=== PATIENT | male | born 1955 | race Caucasian/White ===

== ENCOUNTER 2023-05-02 11:16 | Inpatient (IN) | payer OTHER, SELFPAY ==
[2023-05-02] VITALS (12 sets, daily range): BP systolic 88–127; BP diastolic 39–92; BMI 23.0
--- NOTE | 2023-05-02 09:06 | ED.GENMED ---
History of Present Illness
General
Chief Complaint: Abdominal Symptoms
Source: patient
Exam Limitations: none
Time Seen by Provider: 05/02/23 08:56
Nursing documentation reviewed up to this point in time: agreed with
Travel History
Have you had any contact with someone who has COVID-19?: No
Do you have any symptoms of coronavirus? Fever > 100 degrees, chills, cough, shortness of breath, sore throat, loss of taste or smell, muscle aches, or headache?: No
History of Present Illness
History of Present Illness:
Patient with history of hypertension and GERD, presents to ED for persistent chest pain which woke the patient up from sleep at 6:30 AM yesterday. Chest pain described as burning sensation, associated with shortness of breath. Denies diaphoresis
or nausea. Denies dizziness. Patient has had cold over the past 2 weeks, which has resolved. Denies leg pain or swelling. Denies back pain. Denies recent travel or surgery. Denies previous history of similar symptoms. Patient takes 81 mg
aspirin daily. Upon arrival, patient found to have cyanotic changes on his fingers/toes, which patient was not aware of.
Review of Systems
Review of Systems
Allergies reviewed?: Yes
All Other Systems: ROS reviewed and negative except as documented in HPI and ROS
Constitutional: Reports no symptoms
EENT: Reports no symptoms
Respiratory: Reports trouble breathing
Cardiac: Reports chest pain
ABD/GI: Reports no symptoms
: Reports no symptoms
Musculoskeletal: Reports no symptoms
Skin: Reports other (hands/feet cyanosis)
Neurological: Reports no symptoms
Phy Exam
Physical Exam
Physical Exam:
Physical Exam
General: mild distress, acutely ill. afebrile.
Head: nc/at. eomi
Neck: supple. no meningeal signs. normal posterior pharynx
Heart: s1/s2 regular rate and rhythm, systolic ejection murmur. equal radial pulses.
Lungs: no acute respiratory distress. clear bilaterally
Abdomen: normal bowel sounds. not tender.
Neuro: alert and oriented. no focal neurological deficits
Skin: b/l fingers/toes cyanosis noted. pale appearing
Psychiatric: well kept. interactive and cooperative
Extremities: no edema. no calf tenderness.
Course
Orders/Labs/Results
Orders:
Orders
05/02/23 09:00
Electrocardiogram (*1) Urgent
Reason for Study: Chest Pain
EKG- Treatment ONCE
05/02/23 09:01
CR Chest Portable - 1 View Urgent
Comment:
Reason For Exam: chest pain
Reason Study Needs to be Portable: Patient Unstable
05/02/23 09:06
Complete Blood Count/No Diff Urgent
Comprehensive Metabolic Panel Urgent
Magnesium Urgent
NT-proBNP Urgent
Troponin I Urgent
05/02/23 09:18
0.9% Sodium Chloride 500 ml [Nss] 500 ml IV BOLUS
Aspirin Chewable [Low Strength Aspirin] 324 mg PO NOW STA
05/02/23 09:48
Heparin 5,500 units IV NOW STA
Nursing to Place Non Medication Order As Directed
Physician Order: PTT 6 hours after initial start of Heparin infusion
Above order entered?: Yes
05/02/23 10:00
Echo Follow up Study W Dop Stat
Reason for Study: chest pain
Cardiology Consult: Israel Gleason
05/02/23 10:01
PTT Urgent
Comment: Obtain baseline before beginning heparin infusion if not already collected
05/02/23 10:03
Calcium Gluconate IV [Calcium Gluconate 10% 10 ml] 4.65 meq IV NOW STA
05/02/23 10:05
Dextrose 5%/Water 1000 ml [D5w] 1,000 ml Sodium Bicarbonate 150 meq IV Per Protocol mls/hr
05/02/23 10:13
Insulin Human Regular [Novolin R] 5 units IV NOW STA
05/02/23 10:21
Dextrose 50%-Water [Dextrose 50% Syringe] 25 grams .ROUTE .STK-MED ONE
05/02/23 10:27
Dextrose 50%-Water [Dextrose 50% Syringe] 12.5 grams IV NOW STA
05/02/23 10:35
Heparin 1000 Units/500 ml [Heparin] 1,000 units in 500 ml .ROUTE .STK-MED
Heparin Sodium,Porcine/Ns/Pf [Heparin 2000 Units/1000 ml] 2,000 unit in 1,000 ml .ROUTE .STK-MED
Lidocaine HCl/Pf [Xylocaine-Mpf 1% Vial] 150 mg .ROUTE .STK-MED ONE
Verapamil Injectable [Isoptin/Verapamil Injection] 5 mg .ROUTE .STK-MED ONE
05/02/23 10:36
Nitroglycerin [Tridil] 1,500 mcg .ROUTE .STK-MED ONE
05/02/23 10:38
Fentanyl Citrate/Pf [Sublimaze] 100 mcg .ROUTE .STK-MED ONE
Midazolam HCl [Versed] 2 mg .ROUTE .STK-MED ONE
05/02/23 10:39
Heparin 10,000 units .ROUTE .STK-MED ONE
05/02/23 10:51
Add On- LAB Stat
Tests Added?: Lactic acid
05/02/23 11:00
0.9% Sodium Chloride 500 ml [Nss] 500 ml IV 500 mls/hr
05/02/23 11:04
NORepinephrine 4 MG/250 ML [Levophed] 4 mg in 250 ml .ROUTE .STK-MED
05/02/23 11:09
Admit/Transfer Patient As Directed
Co-Sign Provider:
Level of Care: Inpatient admission
Assign to:: ICU
Physician / Group: Hospitalist
Diagnosis: Cardiogenic shock/MD
Reason for Hospitalization: .
Expected length of stay greater than two midnights?: Yes
ELOS- Estimated Length of Stay in days: 3
I certify the patient meets the requirements for IP care: Yes
05/02/23 11:10
Code Status As Directed
Resuscitation Status: Full Code
05/02/23 12:27
Lactic Acid Routine
05/02/23 19:11
Consult Cardiology [CARDIOLOGY CONSULT] Routine
Consulting Provider: Israel Gleason
Was physician already notified: Yes
Reason for consult: Cardiogenic shock,MD
Consult Cigar Patcher [Cigar Patcher Consult] Routine
Consulting Provider: Moisés Winston
Was physician already notified: Yes
Reason for consult: Cardiogenic shock
Consult Nephrology [NEPHROLOGY CONSULT] Routine
Consulting Provider: Lou Hemphill
Was physician already notified: Yes
Reason for consult: Renal failure
Consult Vascular Surgery [Vascular Surgery Consult] Routine
Consulting Provider: Sharad Segura
Was physician already notified: Yes
Reason for consult: MD
05/03/23 08:00
Aspirin Chewable [Low Strength Aspirin] 81 mg PO DAILY
Abnormal Lab Results
05/02/23 05/02/23
09:06 10:01
RBC 4.14 L 10^6/uL
(4.70-6.10)
MCV 101.4 H fL
(80.0-94.0)
MCH 34.5 H pg
(27.0-31.0)
MPV 12.4 H fL
(7.4-10.4)
APTT > 200 H* Sec
(23.4-35.0)
Potassium 6.1 H* mmol/L
(3.5-5.1)
Carbon Dioxide 17 L mmol/L
(22-30)
BUN 39 H mg/dl
(9-20)
Creatinine 2.9 H mg/dL
(0.7-1.3)
Glucose 137 H mg/dl
(70-99)
Total Bilirubin 2.1 H mg/dl
(0.2-1.3)
AST 3291 H* U/L
(17-59)
ALT 1283 H* U/L
(0-50)
Alkaline Phosphatase 137 H U/L
(38-126)
Troponin I 18.700 H* ng/ml
Albumin 5.1 H g/dl
(3.5-5.0)
05/02/23 09:06
05/02/23 09:06
Vital Signs
Initial and Last Documented VS:
Initial Vital Signs
Pulse Resp BP
87 16 103/73
05/02/23 08:48 05/02/23 08:48 05/02/23 08:48
Last Documented Vital Signs
Temp Pulse Resp BP Pulse Ox
99.1 F 88 14 86/66 100
05/03/23 06:00 05/03/23 07:15 05/03/23 07:15 05/03/23 07:00 05/03/23 07:15
MDM/Problems Addressed
MDM/Problems Addressed:
History and exam concerning for acute coronary syndrome, with development of cardiogenic shock.
Peripheral cyanosis noted on exam. Left dorsalis pedis pulse detected via Doppler. Unfortunately, right dorsalis pedis pulse unable to be detected via Doppler. Patient evaluated in ED by Dr. Segura, vascular surgery, who feels that patient's
peripheral cyanosis likely secondary to systemic etiology, i.e. cardiac versus dissection.
Awaiting evaluation by cardiology, Dr. JC Gleason.
Hyperkalemia noted - given calcium gluconate, insulin, and D50. Sodium bicarbonate infusion started after discussion with nephrology, , for possible iv dye load with upcoming studies.
Blood work reviewed and noted. Patient given aspirin and heparin bolus.
Bedside echo (verbal) - EF approx 10% with hypokinesis. Pt evaluated by Elevator Service Technician attending () - will proceed to open die inspector.
Critical care statement: A total of 60 minutes of critical care time was provided for this patient. This includes management of unstable vital signs, evaluation of the patient at bedside, reviewing the patient's pertinent medical records, discussion
with consultants, review of old EKGs and review of pertinent medical records. This time with separate from time utilized to perform the aforementioned documented procedures
*Critical Care Note
Total Time (30-74mins, 75-104mins- exclusive of procedures): 60 min
ED Attending Note
-
Portions of this chart may have been created with voice recognition software.� Occasional wrong word or��sound alike� substitutions may have occurred due to the inherent limitations of voice recognition software.
Discharge Plan
Departure
Patient Disposition: Admit
Date of Disposition: 05/02/23
Time of Disposition: 10:08
Admit to: ICU
Presentation/result/management discussed w/ accepting MD/DO: Hospitalist
Condition: Critical
Discharge Problem:
Non-ST elevation MD (NSTEMI), Acute renal failure (ARF), Cyanosis, Acute hyperkalemia
Interventions
Interventions:
*Risk Screen - Suicide Last Done: 05/02/23 10:30
*General Assessment Last Done: 05/02/23 10:30
*Neglect/Abuse Screening Last Done: 05/02/23 10:30
ED- Fall Risk Assessment Last Done: 05/02/23 11:09
*ED COVID-19 Vaccine History Last Done: 05/02/23 08:48
*Nursing Disposition Last Done: 05/02/23 10:30
AP-Gpqiqz-Vlmaecjuma Assessment Last Done: 05/02/23 09:37
Discharge Date and Time
Discharge Date/Time: 05/02/23 10:57
[2023-05-02] MEDS: NSS 500 IV ×2 (09:22→10:34)
[2023-05-02] MEDS: LOW STRENGTH ASPIRIN 324 MG PO (09:23)
[2023-05-02 09:33] LABS: Hemoglobin 14.3 g/dL (13.0-18.0); Mean Corpuscular Hgb 34.5 pg (27.0-31.0); Mean Corpuscular Volume 101.4 fL (80.0-94.0); Mean Platelet Volume 12.4 fL (7.4-10.4); Platelet Count 267 10^3/uL (130-400); Red Blood Cell Count 4.14 10^6/uL (4.70-6.10); Red Cell Dist. Width 14.4 % (11.5-14.5); White Blood Cell Count 9.4 10^3/uL (4.8-10.8)
[2023-05-02 09:46] LABS: Albumin 5.1 g/dl (3.5-5.0); Alkaline Phosphatase 137 U/L (38-126); Blood Urea Nitrogen 39 mg/dl (9-20); Calcium 9.8 mg/dl (8.4-10.2); Carbon Dioxide 17 mmol/L (22-30); Chloride 102 mmol/L (98-107); Estimated Creatinine Clearance 24 ml/min; Glucose 137 mg/dl (70-99); Magnesium 1.8 mg/dl (1.6-2.3); Potassium 6.1 mmol/L (3.5-5.1); Sodium 136 mmol/L (135-145); Total Bilirubin 2.1 mg/dl (0.2-1.3); Total Protein 8.2 g/dl (6.3-8.2); eGFR 22.85
[2023-05-02] MEDS: HEPARIN 5500 UNITS IV (09:52)
[2023-05-02 10:04] LABS: ALT (SGPT) 1283 U/L (0-50); NT-proBNP > 27000 pg/ml
--- NOTE | 2023-05-02 10:04 | W.PN.UPDATE ---
Update Note
Progress Note Update
Seen and evaluated urgently per request in the emergency room. 67-year-old male who presents with acute onset of chest pain and some shortness of breath that he woke up with at 6:30 AM. Notes continued chest pain. We were asked to evaluate
secondary to finding of bilateral foot/toe cyanosis and lack of Doppler signals. Patient is without any complaints of pain/weakness in his legs or feet bilaterally. Patient denies any history of lower extremity revascularizations. Denies any
vascular surgical problems. His notes that he had a history of a stroke several years ago that was felt to be due to an embolic cause from what I can understand. Denies any history of aortic problems, no family history of aortic problems.
Denies any abdominal pain currently.
On exam/ Systolic blood pressures in the 80s to 90s. Heart rate 110s. He is awake and alert. Upper extremity bilateral radial pulses are weakened but palpable (1+). Abdomen soft, nondistended, nontender. Lower extremity with weak palpable
femoral pulses bilaterally. (1+). Hands and feet are all symmetrically and equally (upper and lower extremity) slightly cool. All digits (upper and lower extremity) homogenously slightly cyanotic appearing. Brisk capillary refill.
Plan/ This does not appear to be an acute peripheral vascular issue. This appears to be a systemic process such as an MD or an aortic dissection. I discussed this with the emergency room staff, Dr. Isaacs. In the interval since I saw the patient, I
noted that his troponin is 18. Therefore this is likely an acute cardiac event. I recommended Dr. Isaacs immediate cardiac evaluation. In the event that this is not felt to be an acute MD type situation, then patient needs a stat CTA of the
chest/abdomen/pelvis to rule out an acute aortic dissection (despite creatinine, benefits far outweighed by risks in that setting). Will defer to cardiology in the emergency room staff at this point. We are available if needed.
--- NOTE | 2023-05-02 10:11 | CON.VAS ---
Consultation
Consultation Request
Performing Provider: Colton
Reason for Consultation: Cyanotic toes
Medical History
-
Chief Complaint: Chest pain
History of Present Illness:
67-year-old male who presents with acute onset of chest pain and some shortness of breath that he woke up with at 6:30 AM.� Notes continued chest pain.� We were asked to evaluate secondary to finding of bilateral foot/toe cyanosis and lack of
Doppler signals.� Patient is without any complaints of pain/weakness in his legs or feet bilaterally.� Patient denies any history of lower extremity revascularizations.� Denies any vascular surgical problems.� His notes that he had a history of
a stroke 15 years ago that was felt to be due to an embolic cause from what I can understand.� Denies any history of aortic problems, no family history of aortic problems.
Denies any abdominal pain currently. Admits to HTN. Takes one antihypertensive and baby aspirin daily.
Pt seen at bedside in the ER with Dr Segura and pt's present.
Past Medical History
Past Medical History: CVA (embolic stroke 15 years ago (per )- no residual ), HTN and Other
Past Surgical History: None
Social History
Tobacco: Smoker
Personal:
Living: With Family
Family History
Family History: Early CAD
Allergies / Home Medications
Allergy/AdvReac Type Severity Reaction Status Date / Time
No Allergy Information Allergy Verified 05/02/23 08:53
Available
Review of Systems
-
History Source: Patient and Family
All other systems: Negative unless noted
Constitutional: Reports No Symptoms
EENT: Reports No Symptoms
Respiratory: Reports No Symptoms
Cardiac: Reports Chest Pain
Vascular: Reports Numbness (toes)
Abdomen/GI: Reports No Symptoms
: Reports No Symptoms
Musculoskeletal: Reports No Symptoms
Skin: Reports No Symptoms
Neurological: Reports No Symptoms
Endocrine: Reports No Symptoms
Physical Exam
Vital Signs
Pulse Resp BP Pulse Ox
114 14 99/81 98
05/02/23 10:01 05/02/23 10:01 05/02/23 10:01 05/02/23 10:01
Lab Results
05/02/23 09:06
05/02/23 09:06
Troponin I 18.700 ng/ml H* 05/02/23 09:06
Wvk-K-Fixmszxknbo Pept > 63837 pg/ml 05/02/23 09:06
Physical Exam
General: No Apparent Distress
HEENT: Normocephalic and Atraumatic
Respiratory: Non Labored Respirations
Cardiac: Negative JVD
GI: Soft, Non Tender and Non Distended
Musculoskeletal: No Clubbing, Cyanosis (all fingers and toes) and Edema (BL ankles/feet)
Skin: Warm and Other (Cool toes BL, brisk cap refill)
Neuro: Awake, Alert and Oriented
Psych: Calm
Pulses: Bilateral Femoral: +1 (faint), Left Dorsalis Pedis: Doppler (none), Right Dorsalis Pedis: Doppler (faint) and Bilateral Posterior Tibial: Doppler (no doppler signal)
Assessment / Plan
-
Plan/ This does not appear to be an acute peripheral vascular issue.� This appears to be a systemic process such as an IL or an aortic dissection.� I discussed this with the emergency room staff, Dr. Isaacs. � In the interval since I saw the patient, I
noted that his troponin is 18.� Therefore this is likely an acute cardiac event.� I recommended Dr. Isaacs immediate cardiac evaluation.� In the event that this is not felt to be an acute IL type situation, then patient needs a stat CTA of the
chest/abdomen/pelvis to rule out an acute aortic dissection (despite creatinine, benefits far outweighed by risks in that setting).� Will defer to cardiology in the emergency room staff at this point.� We are available if needed.
Data Reviewed
-
Labs: Labs Reviewed by me
--- NOTE | 2023-05-02 10:11 | CON.CAR ---
Addendum entered and electronically signed by Israel Gleason MD 05/02/23 19:03:
67-year-old man with history of hypertension, prior CVA, GERD, daily alcohol and tobacco use with intermittent symptoms of 'reflux' for months.� He had onset of constant chest burning May 01 at 6 AM which persisted unabated until presentation to
the emergency department where he presented in a low output state with ongoing chest discomfort and hypotension.
PMH: Hypertension, CVA, hypercholesterolemia, GERD
PSH: None
SH: , lives at home, self-employed in IT, daily alcohol, daily tobacco
FH: CAD, hypertension
Allergies none
Medications none
Patient complaining of chest burning, appears chronically ill, dusky hands and feet
Pulse 100, blood pressure 90 systolic, rr 22
Head neck exam unremarkable
Lungs diminished breath sounds
Cardiac distant heart tones no obvious murmurs JVD hard to assess
Abdomen benign
Extremities dusky
Pulses diminished
Neuro nonfocal
Hemoglobin 14.3, BUN/creatinine 37 and 2.8, sodium 130, potassium 5, AST ALT 2647, 1096,proBNP greater than 27,000, troponin 18.7
Chest x-ray probable COPD, curly lines, cardiomegaly
ECG sinus rhythm, IVCD right axis deviation, anterolateral myocardial infarction right atrial enlargement, left atrial enlargement
Impression:
Out of hospital myocardial infarction with cardiogenic shock, duration approximately 30 hours with ongoing chest pain
Hypertension
Hypercholesterolemia
History of stroke
GERD
Plan:
Urgent cardiac catheterization
Original Note:
Consultation
Consultation Request
Date/Time Consultation Requested: 05/02/2023
Date/Time Consultation Performed: 05/02/2023
Requesting Provider: Dr. Isaacs
Performing Provider: Sera Larsen PA-C for Dr. JC Gleason
Reason for Consultation: Chest pain, shortness of breath
Medical History
-
History of Present Illness:
Patient is a 67-year-old male with past medical history significant for hypertension, stroke, GERD, daily alcohol use, tobacco abuse who presents to emergency department 05/02/2023 with chest pain, shortness of breath and reflux symptoms. Patient
reports he has been having dyspnea on exertion for several months associated with reflux symptoms. Yesterday he woke up with chest burning that persisted most of the day associated with SOB. Chest pain continued prompting him to seek medical
attention today. In emergency department patient patient was found to have dusky lips and cyanotic fingertips. He also has weakened peripheral pulses. Noted to be hypotensive with BP 88/63 to 103/73. EKG showed sinus tachycardia at 106 bpm with
IVCD, possible RVH and T wave abnormality in inferior leads. Chest x-ray showed mild right lower lung atelectasis versus scarring and mild cardiomegaly. Abnormal labs include BUN 39, creatinine 2.9, potassium 6.1, ALT 1283. Troponin 18.7, proBNP
greater than 27,000.
At time of this presentation patient continues to complain of 3 out of 10 chest burning/tightness. He currently denies shortness of breath, dizziness or lightheadedness.
PMH:
Hypertension
Stroke
GERD
Daily ETOH use
Tobacco abuse
Past Medical History
Past Medical History: Other (see HPI)
Past Surgical History: None
Social History
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 )
Alcohol: Daily (3-5 drinks daily VO on the rocks and several shocks of [place] daily)
Drug: Marijuana (vapes 2-3 times a week)
Personal:
Living: With Family
Employment: Employed (IT, owns business)
Family History
Family History: CAD, Hypertension and Other (Emphysema)
Allergies / Home Medications
Allergy/AdvReac Type Severity Reaction Status Date / Time
No Allergy Information Allergy Verified 05/02/23 08:53
Available
Review of Systems
-
History Source: Patient and Family ()
Physical Exam
Vital Signs
Pulse Resp BP Pulse Ox
114 14 99/81 98
05/02/23 10:01 05/02/23 10:01 05/02/23 10:01 05/02/23 10:01
GEN: No distress, awake, Ox3, dusky lips/palor
HEENT: supple, anicteric, mmm
LUNGS:decreased with crackles at right base
CV: Reg but tachy, S1/S2, 1/6 syst murmur
ABD: soft, BS+, NT/ND
EXT:Trace to +1 LE edema, fingers tips are cyanotic. Cold LE extremities right >lt
NEURO: Gross non-focal
SKIN:pallor, cool
Lab Results
05/02/23 09:06
05/02/23 09:06
Troponin I 18.700 ng/ml H* 05/02/23 09:06
Iyc-G-Hlfrbwdbdxk Pept > 37755 pg/ml 05/02/23 09:06
Impression / Plan
-
PCP: Annika Morton
Associate Professor Of Library Media: None prior to arrival, initial consult Dr. JC Gleason
Impression:
Presents 05/02/2022 with chest burning/pain and shortness of breath for > 24 hours
Abnormal troponin, initial 18.7 with concern for late presentation FL with cardiogenic shock
NSTEMI
Acute heart failure with unknown ejection fraction, proBNP greater than 27,000
Abnormal LFTs
MIREILLE, creatinine 2.9
Hyperkalemia, potassium 6.1
Hypertension
Stroke ~2008
GERD
Daily ETOH use
Tobacco abuse
Echo 05/02/2023:pending
Plan:
-Patient is a 67-year-old male with past medical history significant for hypertension, stroke, GERD, daily alcohol use, tobacco abuse who presents to emergency department 05/02/2023 with chest pain, shortness of breath and reflux symptoms. Patient
reports he has been having dyspnea on exertion for several months associated with reflux symptoms. Yesterday he woke up with chest burning that persisted most of the day associated with SOB. Chest pain continued prompting him to seek medical
attention today. In emergency department patient patient was found to have dusky lips and cyanotic fingertips. He also has weakened peripheral pulses. Noted to be hypotensive with BP 88/63 to 103/73. EKG showed sinus tachycardia at 106 bpm with
IVCD, possible RVH and T wave abnormality in inferior leads. Chest x-ray showed mild right lower lung atelectasis versus scarring and mild cardiomegaly. Abnormal labs include BUN 39, creatinine 2.9, potassium 6.1, ALT 1283. Troponin 18.7, proBNP
greater than 27,000.
At time of this presentation patient continues to complain of 3 out of 10 chest burning/tightness. He currently denies shortness of breath, dizziness or lightheadedness.
-Presents 05/02/2022 with chest burning/pain and shortness of breath for > 24 hours. Troponin 18.7 with concern for late presentation FL and possible cardiogenic shock with hypotension, MIREILLE and abnormal LFTs.
-Stat echocardiogram ordered
-Consider emergent cardiac catheterization
-Got ASA 325 mg and heparin bolus with gtt in ED
-Hypotension with tachycardia -May require inotropes
-MIREILLE - getting IVF bolus
-K+ 6.1 being corrected with dextrose and insulin. Continue to monitor closely
Plan discussed with Dr. Isaacs, nursing, Dr. Gleason
Data Reviewed
-
EKG: Report Reviewed by me, Discussed with Physician, Discussed with Nurse, Discussed with Patient and Discussed with Family
Radiology: Report Reviewed by me, Discussed with Physician, Discussed with Nurse, Discussed with Patient and Discussed with Family
Labs: Labs Reviewed by me, Discussed with Physician, Discussed with Nurse, Discussed with Patient and Discussed with Family
Old Records: Reviewed
[2023-05-02] MEDS: CALCIUM GLUCONATE 10% 10 ML 4.65000000000000036 MEQ IV (10:12)
[2023-05-02] MEDS: SODIUM BICARBONATE 1150 MEQ IV (10:13)
[2023-05-02] MEDS: NOVOLIN R 5 UNITS IV (10:25)
--- NOTE | 2023-05-02 10:25 | HPS.HSE ---
Family Physician
-
Family Physician: Annika Morton
Chief Complaint
-
Chest pain for 1 day duration
History of Present Illness
67 years old male came from home. Patient is accompanied by his . Patient reported chest pain with shortness of breath earlier today. He was not feeling well for 2 weeks. He has not smoked cigarettes because of feeling unwell for 2 weeks.
He reported shortness of breath mostly exertional. Finger discoloration. He continues to drink whiskey every night but he has not had alcohol for 2 nights for feeling unwell.. In the emergency room, the initial concern was regarding peripheral
cyanosis and vascular surgery was consulted. Further workup showed acute myocardial infarction cardiology was consulted in the emergency room. Troponin was elevated. Patient was diagnosed with non-ST elevation myocardial infarction. Preliminary
echocardiogram showed severe depressed left ventricular function. Patient has family history of heart disease.
Creatinine on admission 2.9. Potassium 6.1. Patient takes losartan for high blood pressure. No recent blood work in the system.
Medical History
Past Medical History
Past Medical History: Reports Other (Tobacco use, alcohol use, hypertension, history of stroke, hyperlipidemia, gastroesophageal reflux disease)
Past Surgical History: Reports Other (No recent major surgery)
Social History
Tobacco: Smoker
Alcohol: Daily
Drug: None
Personal:
Living: With Family
Employment: Employed (Private business)
Family History
Family History: CAD
Allergies / Home Medications
Allergies reflects when Allergies were last updated in [employer].
Home Medications with original date entered in [employer]
Allergy/Medication List:
Allergies
Allergy/AdvReac Type Severity Reaction Status Date / Time
No Allergy Information Allergy Verified 05/02/23 08:53
Available
Home Medications
aspirin 81 mg chewable tablet 81 mg PO DAILY 05/02/23
dexlansoprazole 60 mg capsule,biphase delayed release (Dexilant) 60 mg PO DAILY 05/02/23
losartan 50 mg tablet 50 mg PO DAILY 05/02/23
Review of Systems
-
History Source: Patient
A 12 point ROS was completed and negative except as noted: Yes
Constitutional: Denies Fever or Chills
EENT: Denies Sore Throat
Respiratory: Reports Trouble Breathing; Denies Cough
Cardiac: Reports Chest Pain
Abdomen/GI: Denies Abdominal Pain
: Denies Dysuria
Musculoskeletal: Denies Joint Pain
Skin: Denies Itching or Rash
Neurological: Denies Numbness
Endocrine: Denies Temp Intolerance
Hematologic/Lymphatic: Denies Bruising
Psych: Denies Panic Disorder
Physical Exam
Vital Signs
Vital Signs
Pulse Resp BP Pulse Ox
114 14 99/81 98
05/02/23 10:01 05/02/23 10:01 05/02/23 10:01 05/02/23 10:01
Physical Exam
General: No Apparent Distress and Appears Chronically Ill
HEENT: Anicteric, Moist mucous membranes and Atraumatic
Respiratory: Decreased Breath Sounds
Cardiac: S1/S2
GI: Soft and Non Tender
Rectal: No Maroon Stools
Genito-urinary: No costovertebral tender; No Bloody Urine
Musculoskeletal: Cyanosis and No Edema
Skin: Dry; No Jaundice
Neuro: AO x 3 and Nonfocal/grossly intact
Psych: Calm and Intact Judgment/Insight; No Agitated
Laboratory Results
-
05/02/23 09:06
05/02/23 09:06
Laboratory Results
Total Bilirubin 2.1 mg/dl (0.2-1.3) H 05/02/23 09:06
ALT 1283 U/L (0-50) H* 05/02/23 09:06
Alkaline Phosphatase 137 U/L (38-126) H 05/02/23 09:06
Troponin I 18.700 ng/ml H* 05/02/23 09:06
Impression/Plan
-
IMPRESSION:
67 years male who presented with chest pain, shortness of breath and peripheral cyanosis
# Acute non-ST elevation myocardial infarction
Admit the patient to the hospital/high-level care
Continue with intravenous heparin drip and monitor PTT
Pain medication, as needed IV morphine as needed. Currently patient has no chest pain
Continue with antiplatelet therapy
Discussed with nailer operator for revascularization
Patient has renal sufficiency but benefits outweigh risk of contrast study/catheterization
Monitor heart rate,
Stat echocardiogram
Appreciate cardiology help
# Cardiogenic shock due to LA with peripheral cyanosis
Continue with pressure support and IV fluid
Avoid volume overload
# Acute kidney injury
Patient denies history of renal insufficiency in the past. Patient was taking losartan
Likely prerenal
Check urine test
Monitor with bladder scan protocol to avoid retention
Check CPK
Appreciate nephrology input
# Hyperkalemia
Due to renal insufficiency and use of losartan
Stop losartan
Give calcium gluconate
Low potassium diet
EKG is reviewed
# Elevated liver enzymes, likely ischemic hepatitis.
And has history of daily alcohol intake. No abdominal pain. No nausea.
Trend liver enzymes
# Primary hypertension. Hold losartan due to renal sufficiency and hypotension
To her blood pressure
# History of CVA continue with antiplatelet therapy
# History of GERD, continue with PPI
# History of tobacco abuse
# History of daily alcohol intake. Patient denied history of DVT despite holding alcohol intake in the past
Monitor for that. Will give thiamine. Will follow-up.
Currently patient has no tremor or agitation.
Total critical time spent to see the patient on the floor, examine the patient, review data and lab results, discuss treatment plan with patient, his , nailer operator, ER doctor and nursing staff around 85 minutes
[2023-05-02] MEDS: DEXTROSE 50% SYRINGE 12.5 GRAMS IV (10:27)
--- NOTE | 2023-05-02 10:37 | EDRN ---
Addendum entered by Lawanda Alicea RN 05/02/23 11:05:
Pt arrived with poor perfusion symptoms expressly on right side of Upper and lower extremities. Delayed cap refill noted on Right and but <3 cap refill on right LE. Pt continues to report weeks of 2/10 burning pain in center sternum. Pt reports
'He hates going to hospitals and seeing doctors' Doppler performed on right hand was able to find Radial pulse. Unable to find pulse on Right foot with doppler. Dr. Isaacs called to bedside. Medication adminsitered per MD orders and requests. Pt
remains stable conversant and verbalizes understanding of all treatments. Medical consult teams referred. Echo confirmed pt EF 10%. Pt signed consent and Yue RAO from Cardiac Cath called for report. Pt transported up at 1057. Pt remained stable in
no acute distress. travelled and was shown waiting room.
Original Note:
Pt arrived with poor perfusion symptoms expressly on right side of Upper and lower extremities. Delayed cap refill noted on Right and but <3 cap refill on right LE. Pt continues to report weeks of 2/10 burning pain in center sternum. Pt reports
'He hates going to hospitals and seeing doctors' Doppler performed on right hand was able to find Radial pulse. Unable to find pulse on Right foot with doppler. Dr. Isaacs called to bedside. Medical consult teams referred. Echo confirmed pt EF 10%. Pt
signed consent and Yue RAO from Cardiac Cath called for report. Pt transported up at 1057. Pt remained stable in no acute distress. travelled and was shown waiting room.
[2023-05-02 10:40] LABS: AST (SGOT) 3291 U/L (17-59)
[2023-05-02 10:58] LABS: APTT > 200 Sec (23.4-35.0)
[2023-05-02 11:52] LABS: B.E. -7.7 mmol/L; O2 Saturation % 99.1 % (94-98); PCO2 25 mmHg (35-48); PO2 151 mmHg (83-108)
[2023-05-02 11:54] LABS: HCO3 15.5 mmol/L (21-28)
[2023-05-02 12:13] LABS: ACT-LR - POC 261 Seconds (116-155)
--- NOTE | 2023-05-02 12:26 | CONSULT.CT ---
Consultation
-
Date/Time Consultation Requested: 05/02/23 1200
Date/Time Consultation Performed: 05/02/23 1215
Requesting Provider: Massimo WATERS
Performing Provider: Bethany WATERS
Reason for Consultation: Impella 5.5 Placement
Patient History
Physicians
Family Physician: Annika Morton
Inpatient Armored Car Guard: Hossein Keys
History of Present Illness
67-year-old male with past medical history of smoking, daily EtOH, CVA, HLD, GERD, anxiety, and hypertension presented to the [place] emergency room on 05/02/2023 with complaints of chest pain, shortness of breath, and reflux symptoms since the
morning. However, he endorses having CHAVEZ for several months. While in the emergency department, he was found to have cyanosis around the lips and finger tips, along with weak peripheral pulses. He labs revealed multiple organ dysfunction and was
noted to be hyperkalemic and was treated with a hyperkalemia cocktail. He was urgently taken to the [facility] for LHC. While in the [facility], he was found to be in cardiogenic shock with CI 0.[address] surgery was consulted for urgent Impella 5.5 placement.
Past Medical History
Past Medical History: CAD, CVA/TIA, HTN, Hypercholesterolemia and VA
Past Surgical History
Past Surgical History: None
Dental History
unknown
Family History
Mother: N/A
Father: N/A
Family Medical History: CAD
Social History
Alcohol: Daily
Drug: Marijuana
Tobacco: Vaping
Personal:
Living: With Spouse
Employment: Employed
Allergies
Allergy/AdvReac Type Severity Reaction Status Date / Time
No Allergy Information Allergy Verified 05/02/23 08:53
Available
Home Medications
Medication Instructions Recorded Confirmed Type
aspirin 81 mg chewable tablet 81 mg PO DAILY 05/02/23 05/02/23 History
dexlansoprazole 60 mg 60 mg PO DAILY 05/02/23 05/02/23 History
capsule,biphase delayed release
(Dexilant)
losartan 50 mg tablet 50 mg PO DAILY 05/02/23 05/02/23 History
Review of Systems
-
Unable to obtain full review of systems at this time due to: Acuity
Physical Exam
Vital Signs
Temp 98.2 F 05/02/23 09:32
Temp route: Rectal 05/02/23 09:32
Pulse 104 05/02/23 10:45
Resp Rate 22 05/02/23 10:45
Blood pressure 93/73 05/02/23 10:30
Blood pressure extremity used: Left upper arm 05/02/23 08:48
MAP (cuff-Andre Monitor) 81 05/02/23 10:30
SaO2 98 05/02/23 10:01
Actual Weight 68.5 kg 05/02/23 09:10
Body Mass Index (BMI) 23.0 05/02/23 09:10
Labs
05/02/23 09:06
05/02/23 09:06
APTT > 200 Sec (23.4-35.0) H* 05/02/23 10:01
Troponin I 18.700 ng/ml H* 05/02/23 09:06
Ttm-X-Ouobljgmqby Pept > 99478 pg/ml 05/02/23 09:06
Arterial Blood Gases
pH 7.40 (7.35-7.45) 05/02/23 11:41
pCO2 25 mmHg (35-48) L 05/02/23 11:41
pO2 151 mmHg (83-108) H 05/02/23 11:41
HCO3 15.5 mmol/L (21-28) L* 05/02/23 11:41
Base Excess -7.7 mmol/L 05/02/23 11:41
ABG O2 Sat (Measured) 99.1 % (94-98) H 05/02/23 11:41
O2 Delivery Level Not Reportable 05/02/23 11:41
Exam
General: Intubated
HEENT: Moist Mucous Membranes and PERRLA
Neck: JVD
Respiratory: Crackles
Cardiac: S1/S2
Rectal: Deferred by Provider
Skin: Other (cool)
Neuro: Sedated
Extremities: Lower Level Cyanosis and Pulses (doppler)
Lymph: No Lymphadenopathy
Psych: Other (sedatted)
Assessment / Plan
-
67 y/o male with PMHx listed above presented to [facility] with CP and was found to be in cardiogenic shock. CT surgery consulted for MCS placement.
#CAD s/p ZAIN to LAD
#Cardiogenic shock
- Urgent Impella 5.5 placement in the cook house laborer with bicarb thru purge solution
- admit to the CVICU
- Continue milrinone
- Start heparin infusion when ACT <180
- Continue to monitor lactate
#Ventilator dependent respiratory Failure (expected)
- stat ABG upon arrival to CVICU
- vent management per primary team
#MIREILLE with Hyperkalemia
-s/p hyperkalemia cocktail in ER
- Repeat CMP pending; trend q6h
- nephro consulted
#Shock Liver
- Continue to trend
[2023-05-02 12:41] LABS: ACT-LR - POC 284 Seconds (116-155)
[2023-05-02 13:07] LABS: Lactic Acid 3.7 mmol/L (0.7-2.0)
[2023-05-02 13:39] LABS: Albumin 3.5 g/dl (3.5-5.0); Alkaline Phosphatase 104 U/L (38-126); Blood Urea Nitrogen 37 mg/dl (9-20); Calcium 8.3 mg/dl (8.4-10.2); Carbon Dioxide 16 mmol/L (22-30); Chloride 103 mmol/L (98-107); Estimated Creatinine Clearance 24 ml/min; Glucose 151 mg/dl (70-99); Sodium 130 mmol/L (135-145); Total Bilirubin 1.3 mg/dl (0.2-1.3); eGFR 23.83
[2023-05-02 14:47] LABS: ALT (SGPT) 1096 U/L (0-50)
[2023-05-02 15:25] LABS: AST (SGOT) 2647 U/L (17-59)
[2023-05-02 15:27] LABS: ACT-LR - POC 239 Seconds (116-155)
[2023-05-02 17:49] LABS: B.E. - POC -11.2 mmol/L; Glucose - POC 481 mg/dl (65-99); HCO3 - POC 17 mmol/L (21-29); Hematocrit - POC 25 % PCV (42-52); Hemodilution- POC Yes; Hemoglobin Calculated - POC 8.6; Ionized Calcium - POC 1.19 mmol/L (1.12-1.27); O2 Saturation %Calculated-POC 65.5 5 (92-96); PCO2 - POC 50 mmHg (35-45); PO2 - POC 44 mmHg (80-100); Potassium - POC 3.9 mmol/L (3.6-5.0); Sodium - POC 129 mmol/L (135-145); pH - POC 7.14 (7.35-7.45)
[2023-05-02 18:05] LABS: B.E. - POC -12.7 mmol/L; Glucose - POC 579 mg/dl (65-99); HCO3 - POC 16 mmol/L (21-29); Hematocrit - POC 24 % PCV (42-52); Hemodilution- POC Yes; Hemoglobin Calculated - POC 8.3; O2 Saturation %Calculated-POC 41.4 5 (92-96); PCO2 - POC 52 mmHg (35-45); PO2 - POC 32 mmHg (80-100); Potassium - POC 3.7 mmol/L (3.6-5.0); Sodium - POC 127 mmol/L (135-145)
[2023-05-02 18:05] LABS: ACT-LR - POC 331 Seconds (116-155)
--- NOTE | 2023-05-02 18:14 | W.PN.UPDATE ---
Update Note
Progress Note Update
Attempted to see the pt but he is in lab rn
will see him tomorrow
call economic forecaster nephro with any questions
[2023-05-02 18:21] LABS: ACT-LR - POC 134 Seconds (116-155)
--- NOTE | 2023-05-02 18:46 | ITS.CL.ANGIO ---
Security Coordinator - Angioplasty
Angioplasty
Procedure Report:
CARDIAC CATHETERIZATION REPORT
Date of Procedure: 05/02/2023
Referring: Alfa Isaacs M.D.
Indication: Cardiogenic shock.
PROCEDURE:
1. Right heart catheterization.
2. Left heart catheterization.
3. Coronary angiography.
4. Successful IVUS guided PCI of the left main into the ostial LAD.
5. Placement of an intra-aortic balloon pump.
6. Failed placement of an Impella 5.5 via right axillary surgical cutdown.
7. Primary repair of right axillary artery by vascular surgery.
8. Placement of an Impella CP via right axillary surgical cutdown.
ACCESS:
8 Beninese right common femoral vein using a modified Seldinger technique with a micropuncture kit under ultrasound guidance.
6 Beninese left common femoral artery using a modified Seldinger technique with a micropuncture kit under ultrasound guidance.
Surgical cutdown and placement of a 10 mm dacryon graft on the right subclavian/axillary artery.
CATHETERS:
1. 7.5 Beninese [place].
2. 5 Beninese JL 4.
3. 5 Beninese JR4.
4. 6 Beninese EBU 4.0 guiding catheter.
5. 6 Beninese angled pigtail catheter.
HEMODYNAMIC DATA
Weight (kg): 68.5
AO (s/d/x mmHg): 100/70/80
LV (s/x mmHg): 100/40
PCWP (a/v/x mmHg): 47/46/42
PA (s/d/x mmHg): 61/43/49
RV (s/x mmHg): 61/24
RA (a/v/x mmHg): 29/26/25
SVC SvO2 (%): 27.6
PA SvO2 (%): 23.9
SaO2 (%): 99.6
Hbg (g/dL): 11.9
SUKH
CO (L/min): 1.91
CI (L/min/m2): 1.05
THERMODILUTION
CO (L/min): 1.40
CI (L/min/m2): 0.77
TPG (mmHg): 7
PVR (Montoya Units): 5
SVR (dynes*seconds*cm^-5): 3143
AVO2 Diff (Volume %): 12.25
AV gradient (x, mmHg): None.
AV area (cm2): Normal.
LEFT VENTRICULOGRAPHY: Not performed.
CORONARY ANGIOGRAPHY
Dominance: Right.
Left Main: Normal size, bifurcating vessel. There is no coronary artery disease.
LAD: Normal size vessel giving rise to several significant diagonals. The vessel is acutely, 100% occluded at its true origin.
Ramus: Congenitally absent.
Circumflex: Large size, nondominant vessel that gives rise to 2 obtuse marginals. OM1 is a large vessel which bifurcates into 2 daughter vessels and supplies the majority of the lateral and inferolateral wall. OM 2 is a much smaller vessel
branching off of the true AV groove circumflex. There is no coronary artery disease.
RCA: Large size, dominant vessel. The vessel is chronically totally occluded at its mid section. Robust collaterals are seen from the circumflex vessel supplying the RPDA and distal RCA.
INTERVENTIONS
1. Successful IVUS guided PCI of the ostial LAD 100% lesion (Xience Skypoint 3.0 x 28 ZAIN, postdilated with a 3.0 balloon throughout, a 3.25 balloon in the proximal margin, followed by a 3.75 NC balloon in the proximal margin) with reduction in
stenosis to 0%, restoring LANA-3 flow.
2. Successful placement of an intra-aortic balloon pump via left common femoral artery.
3. Failed placement of an Impella 5.5 via right axillary cutdown and graft placement.
4. Successful placement of Impella CP via right axillary cutdown and graft placement.
Narrative:
Initially, we evaluated the patient for upfront placement of an Impella CP via a common femoral approach. Unfortunately, ultrasound revealed that both femoral arteries were less than ideal for placement of any large bore sheath and would likely
lead to occlusion of the downstream vessel.
The decision was made to proceed with percutaneous coronary intervention. The diagnostic catheter was removed over a wire and a 6Fr EBU 4.0 guiding catheter was advanced to the aortic root and seated in the left main coronary artery. Additional
heparin was given and a Power Turn Flex wire was advanced into the distal LAD. A BMW wire was advanced into the distal circumflex for protection. The acute, ostial LAD lesion was predilated with a 2.0 x 12 semi-compliant balloon to 12 sharri. The
semi-compliant balloon was removed. Intracoronary nitroglycerin was administered and angiography was performed in orthogonal views to gain a better understanding of the arterial anatomy. The intracoronary nitroglycerin revealed the true size of
the vessel. And a Xience Skypoint 3.0 x 28 drug-eluting stent was advanced. Meticulous care was taken while positioning the stent, making sure to cover the entire LAD lesion. The proximal margin of the stent protruded into the left main coronary
artery. I felt that this was acceptable and in fact necessary due to the location of the LAD lesion as well as some atherosclerosis seen in the left main coronary artery. The lesion appeared to have favorable profile PCI without occlusion of the
left circumflex artery. The stent was deployed at 12 atmospheres. The stent balloon was removed. A 3.0 x 15 noncompliant balloon was advanced into the stent and the stent was postdilated to 14 atmospheres. The 3.0 x 15 noncompliant balloon was
removed and a 3.25 x 12 noncompliant balloon was advanced. The proximal stent was dilated to 14 sharri with this balloon. The noncompliant balloon was removed. Angiography was performed in orthogonal views, confirming good stent expansion and an
excellent angiographic result with brisk flow in both the LAD and in the circumflex.
The decision was made to perform intracoronary imaging. An IVUS catheter was advanced through the guiding catheter and into the ostium of the artery. Ring down was performed once the imaging crystal was no longer inside of the guiding catheter. The
IVUS catheter was advanced into the mid LAD. Intravascular ultrasound was performed in a retrograde fashion using a slow pullback. Intracoronary imaging demonstrated atherosclerosis within the body of the proximal vessel. The distal stent margin in
the proximal LAD appeared well-expanded and well opposed. The proximal stent margin in the left main coronary artery showed good expansion but mall apposition in the larger vessel. Coronary artery measurements were made. The IVUS catheter was
removed and a 3.75 x 12 NC balloon was advanced. The proximal margin of the stent was dilated to 14 sharri. The noncompliant balloon was removed. Angiography was performed in orthogonal angles demonstrating good stent apposition and an excellent
angiographic result. Over the course of the intervention, the patient's pressor requirement had increased from norepinephrine 2 mcg/kg/min to 10 mcg/kg/min. Milrinone had been started after discovering the severity of the patient's cardiogenic
shock.
The coronary wire was withdrawn and the guide was disengaged from the artery.
Throughout the case, I was communicating with CT surgery as well as the mechanical circulatory support service at the [facility]. We agreed that mechanical circulatory support would become necessary. CT surgery came to
Security Coordinator 3 and the decision was made to proceed with cutdown and placement of an axillary graft, through which we would place an Impella 5.5. The JR4 catheter was advanced through the left femoral sheath and into the right subclavian artery.
Angiography was performed, demonstrating a robust vessel, generally free of disease. The JR4 catheter was removed. Given the patient's cardiogenic shock and potential decompensation with anesthesia induction, the decision was made to place an
intra-aortic balloon pump. The 6 Beninese left common femoral artery sheath was exchanged for an 8 Beninese balloon pump sheath. The balloon pump was advanced over a wire with the distal end at the level of the denise. The balloon pump was activated
at one-to-one.
At this time, I broke scrub to allow Dr. Sims to begin the surgical cutdown and to attend to another critically ill patient. Please see Dr. Sims's and Dr. Segura's surgical operative notes for full details regarding the surgical exposure of the right
subclavian/axillary artery and placement of the graft.
After Dr. Sims had placed the 10 mm graft on the right subclavian artery, I reentered the room to assist with Impella 5.5 placement. A pigtail catheter was advanced into the ascending aorta through the graft. The catheter was prolapsed into the
left ventricle and the J-wire was removed. The Impella wire was advanced through the pigtail catheter and the pigtail catheter was withdrawn. The Impella 5 5 was prepped on the back table per standard protocol and advanced over the Impella wire.
Unfortunately, we encountered significant difficulty when trying to pass the Impella from the graft into the [place] artery. There was significant resistance and spite of numerous manipulations including torque and increased wire tension.
Ultimately, the Impella 5.[address] Sims inspected the artery. At this point, it became clear that the artery had been partially dissected as evidenced by a piece of denuded intima on the outflow cannula of the Impella on removal.
It became clear that the patient would require arterial repair. Dr. Segura of vascular surgery was called to the Security Coordinator and proceeded to assist Dr. Sims with repair of the right axillary artery. He reported that the artery was, in fact, dissected
locally. He performed an endarterectomy and primary repair with replacement of the graft more proximally. After the repair, I was again called back to the Security Coordinator to assist with Impella placement. Again, we encountered significant difficulty
with substantial bleeding while trying to advance the Impella 5.5. At this time, the decision was made to proceed with placement of an Impella CP via the right axillary cutdown. The Impella CP was prepped on the back table per standard protocol
and advanced over the Impella wire. The Impella CP past through the subclavian graft and artery with no resistance, entering the ventricle with ease. The Impella wire was removed and flow was started.
At this time, Dr. Sims readdressed the graft to treatment to an acceptable length. Dr. Segura again assisted. The patient had become coagulopathic and multiple blood products were infused. At this time, I again broke scrub to allow Dr. Sims and "Chito"Colton to operate in a clear field.
Closure Device: None.
Radiation dose (mGy): 639.48
DAP (cm2.Gy): 52.5587
Fluoroscopy time (minutes): 35.3
Sedation time (minutes): 78
CONCLUSIONS:
1. Right dominant circulation with a QUALITY ASSURANCE MONITOR BODY of the right coronary artery and an acute, thrombotic, ostial LAD occlusion status post successful IVUS guided PCI (Xience Skypoint 3.0 x 28 ZAIN from the left main coronary artery into the proximal LAD,
postdilated with a 3.0 NC balloon throughout, a 3.25 NC balloon in the proximal margin and 3.75 NC balloon in the proximal margin) with reduction in stenosis to 0%, restoring LANA-3 flow.
2. Cardiogenic shock (PCWP = 42 mmHg, cardiac index = 0.8 L/min/m�).
3. Severely elevated filling pressures (LVEDP = 40 mmHg, PCWP = 42 mmHg at 68.5 kg).
4. Severe peripheral arterial disease of the bilateral femoral arteries, incompatible with placement of large bore sheath.
5. Status post successful placement of an intra-aortic balloon pump.
6. Failed placement of an Impella 5.5 via right subclavian/axillary artery cutdown with subsequent dissection requiring endarterectomy and primary repair with replacement of the graft more proximally.
7. Successful placement of an Impella CP via right subclavian/axillary artery cutdown.
RECOMMENDATIONS:
1. Maintain placement of the Impella CP. Ideally, remove intra-aortic balloon pump, though I would wait for coagulopathy to resolve.
2. Trend troponin to peak.
3. Every 4 hours laboratory studies including CMP, CBC, PT/INR, lactic acid.
4. Stat transthoracic echocardiogram to evaluate Impella placement.
5. Monitor UOP. Low threshold for placement of of HD catheter.
6. Maintain close communication with [facility]. Plan to expedite transfer tomorrow morning if he remains stable.
Copy to: Rissa Verduzco D.O., Annika Morton M.D., Sharon Jean M.D.
Hossein Keys, DO, FACC, FACP
--- NOTE | 2023-05-02 18:53 | W.PN.UPDATE ---
Update Note
Progress Note Update
67-year-old man with history of hypertension, prior CVA, GERD, daily alcohol and tobacco use with intermittent symptoms of 'reflux' for months. He had onset of constant chest burning May 01 at 6 AM which persisted unabated until presentation to
the emergency department where he presented in a low output state with ongoing chest discomfort and hypotension.
PMH: Hypertension, CVA, hypercholesterolemia, GERD
PSH: None
SH: , lives at home, self-employed in IT, daily alcohol, daily tobacco
FH: CAD, hypertension
Allergies none
Medications none
Patient complaining of chest burning, appears chronically ill, dusky hands and feet
Pulse 100, blood pressure 90 systolic, rr 22
Head neck exam unremarkable
Lungs diminished breath sounds
Cardiac distant heart tones no obvious murmurs JVD hard to assess
Abdomen benign
Extremities dusky
Pulses diminished
Neuro nonfocal
Hemoglobin 14.3, BUN/creatinine 37 and 2.8, sodium 130, potassium 5, AST ALT 2647, 1096,proBNP greater than 27,000, troponin 18.7
Chest x-ray probable COPD, curly lines, cardiomegaly
ECG sinus rhythm, IVCD right axis deviation, anterolateral myocardial infarction right atrial enlargement, left atrial enlargement
Impression:
Out of hospital myocardial infarction with cardiogenic shock, duration approximately 30 hours with ongoing chest pain
Hypertension
Hypercholesterolemia
History of stroke
GERD
Plan:
Urgent cardiac catheterization
--- NOTE | 2023-05-02 18:56 | OR.RPT ---
Operative Report
Operative Report
PROCEDURE DATE: 05/02/2023
Preoperative diagnosis:
1. [place] status post angioplasty/stenting.
2. Cardiogenic shock.
3. Need for arterial access for large Impella device.
Postoperative diagnosis: Same
Procedure:
1. Exposure more proximal right axillary artery.
2. Axillary artery endarterectomy with tacking of posterior proximal dissection flap.
3. Placement of 10 mm dacryon graft on axillary artery for Impella cannulation.
Surgeon: Colton
[employer] Viewer: Nimesh Sims MD
Complications: None
Anesthesia: General
Indications for procedure:
Patient was undergoing emergent procedures by the cardiology and cardiac surgery teams. Dr. Sims and team had accessed the axillary artery on the right side. They attempted to place an Impella device through here. However were unable to. In
removing the device they noted intimal debris. Therefore they called for evaluation and potential assistance with access placement. I was emergently called and emergently arrived in the operating room.
Description of procedure:
When I arrived to the operating room, the patient had already been prepped and draped. The right more distal axillary artery had been exposed. A graft had been sewn onto this side of it (end to side). This graft was stapled and transected and
there was only a small portion of the remaining graft on the artery. The pulse around the vicinity of the graft was present, but slightly weaker. In addition it looks like in the lumen of the artery there was potentially some thrombus or flap. I
dissected more proximally on the artery. I did note that there was a large nerve branch (likely plexus) crossing over the vicinity of the prior graft. I gently carefully dissected this circumferentially and passed a vessel loop around it to allow
retraction. Next I dissected the artery more proximally. The pulse was very strong proximally. The artery was normal to palpation here. Now that I had obtained proximal dissection, I circumferentially dissected the artery carefully and obtained
proximal control. The thyrocervical trunk was ligated between silk ties and divided in order to allow better exposure. After clamping proximally distally, I made an arteriotomy through the stump of the thyrocervical trunk. This was done with 11
blade. I then extended using a Fletcher scissor. I immediately noted loose intimal debris. There was a clear-cut dissection here. I was able to remove the debris and endarterectomized back to clean intima proximally. The posterior intima had
raised and I do not know how far proximally extended. However the rest of the intima appeared well adherent. Therefore I then used interrupted 6-0 Prolene sutures to tack the posterior intima. In addition, this would be in the direction of flow,
and therefore is less worried about further dissection. Distally as well as I could assess, the intima appeared adherent and the endarterectomy ended cleanly. However, I did great difficulty exposing more distally. In addition the patient's
tenuous overall status precluded more prolonged dissection exposure. Therefore, at this point I then used a 10 mm dacryon graft supplied by the cardiac surgery team. I then beveled this graft and sewed an end to side anastomosis using a running
6-0 Prolene suture. I completed and tied to my suture line. I released flow in the [place] arteries. The graft was then accessed for Impella device placement. See cardiac surgery and cardiology notes for complete assessment of this. There was
excellent pulsatile flow prior to the placement of the Impella device in the artery and in the graft. Angiogram that I performed on table by the cardiology team also demonstrated widely patent flow in the innominate/subclavian/axillary artery now
with no residual dissection evident. Hemostasis was achieved. This took an extended amount of time and several 6-0 Prolene [id number] type sutures were placed along the suture line. However, there was no real pulsatile bleeding, rather just
coagulopathy from his overall status. Once we achieved full hemostasis, the site was then closed. See Dr. Sims's operation note for details. The patient tolerated my portion of the procedure reasonably. However overall tenuous clinical status.
Will be taken to the ICU in guarded condition.
--- NOTE | 2023-05-02 19:20 | W.PN.CT.SURG ---
CT Surgery Operative Note
-
CARDIAC SURGERY OPERATIVE REPORT
Preoperative Diagnosis: Cardiogenic shock status post occlusion of the proximal LAD
Postoperative Diagnosis: Same
Procedure(s) Performed:
1. Right axillary cutdown with anastomosis of 10 mm graft
2. Attempted placement of a 5.5 Impella, however due to the size of the [place] vessel and possibly angulation, unable to pass the 5.5 and needed to downgrade to a CP Impella CPT 25004 (See Dr. Keys's Note for more detail)
3. Right axillary artery/subclavian endarterectomy (See Dr. Segura's Note for Details) and repair with placement of a new more aggressively bevelled 10mm graft
Date of Surgery: 05/02/23
Comorbidities:
1. Cardiogenic shock
2. Acute renal failure
3. NSTEMI
4. Status post PCI and stenting to the LAD
5. EtOH use
Attending Surgeons: Nimesh Sims MD, MS,
Vascular Surgeon: Sharad Segura MD
Interventional Cardiology: Paul Keys DO
Assistants: Shruthi Porter PA-C (present and necessary to hotel assistant manager, retraction, suction, exposure, suture management, and wound closure under my direction)
Anesthesiology: Elijah Walden MD and Marilin Peterson CRNA
Scrub and Circulating RNs: Nohelia Elizalde RN, Marisel Cooley RN
Night Worker: Hanna Prince CCP
Anesthesia: GETA
EBL: 800cc
Products: Multiple
Indication(s) for Procedures: This is a 67-year-old male who I met on the Chef table in the medical center, unable to obtain a full history and physical examination. He has severe LV dysfunction with a EF of approximately 10 to 15% and end-systolic
diameter of approximately 5.3 cm. He is requiring intra-aortic balloon pump and is status post NSTEMI with stenting to the proximal LAD.
Findings: Transesophageal echocardiography revealed severely depressed LV function with dilated dimensions with global hypokinesis. The initial attempt of placement of a 5.5 Impella was unsuccessful as the [place] artery was likely too small to
accept the device. This resulted in a dissection of the posterior wall of the axillary leading into the subclavian artery. Vascular surgery was consulted intraoperatively who performed an endarterectomy (please see their note for details), as part
of the repair, a new 10 mm graft was anastomosis as a jeter/patch repair. A second attempt at passing the 5.5 Impella was also unsuccessful likely due to the [place] size of the vessel and angulation. An angiogram of the innominate artery revealed
no obvious dissection on the second attempt, multidisciplinary team discussion ultimately led to placement of a CP Impella through the axillary graft which passed without any resistance and with ease. Placement was under transesophageal
echocardiographic guidance and flows were established at approximately 2.5-3.0 with a CP Impella at a setting of P5 the intra-aortic balloon pump was turned to 1:3 setting in the patient's elevated ACT was reversed with protamine. Multiple blood
products were given due to significant blood loss from multiple device exchanges and from coagulopathy. The anastomosis was checked for hemostasis and then packed with hemostatic agents and the wound was closed tightly with multiple interrupted
sutures. The device was secured to the patient's chest and the patient was transported to ICU.
Prosthesis: CP Impella via right axillary with a 10 mm straight tube graft.
Description of Procedure: The patient was taken to the operating room. Their identity and procedure to be performed were verified and they were positioned supine on the operating table. Induction via general anesthesia with endotracheal intubation
was performed and central venous access and arterial monitoring were inserted. The patient was then prepped and draped from chin to abdomen in a sterile fashion. A preoperative time-out was performed with all members of the team present. Initially
an incision was made over the deltopectoral groove and wheat Lancaster's were used to expose the pectoralis major. This was then spread along the muscle fiber lines and the pectoralis minor was encountered and transected with electrocautery. The fat
pad overlying the brachial plexus was gently dissected and the axillary artery was isolated with Vesseloops both proximally and distally. Vascular clamps were used to occlude the vessel and a small arteriotomy was created and enlarged with Fletcher
scissors. The 10 mm graft was beveled and a 45 degree angle and end-to-side anastomosis was created using 5-0 Prolene in a running fashion. Release of the distal end of the artery allowed de-airing and then release of the proximal and verified
excellent pulsatility in the graft. An occlusion diaphragm sheath was placed at the end of the graft and a J-wire along with a pigtail catheter was used to cross the aortic valve. This was exchanged for an 018 wire. Initially the 5 5 Impella was
traversing through the graft that these however after passing through the anastomosis at the point just beneath the clavicle resulted in significant resistance. Change in angulation did not assist result in any passage of the Impella. It was then
removed from the graft as well as the wire. The vessel itself did not appear to be normal on my inspection and I fear that there was an iatrogenic dissection. I opted to transect the graft and oversew it. I dissected further proximally past the
thyrocervical trunk. I suspect that there was a dissection so vascular surgery was consulted intraoperatively. We both dissected further proximally and isolated the vessel. After performing a longitudinal atriotomy there was clearly a dissection
flap, please see Dr. Segura's note for further details. Once he performed an endarterectomy, a new 10 mm graft that was beveled aggressively was used to recreate a jeter patch repair of the vessel as well as to facilitate passage of the new Impella.
The 5.5 Impella was attempted again to pass over the 018 wire and again this stopped at the same point. At this point, I felt the [place] vessel was not suitable for this device size and so this was exchanged for a CP Impella which passed with ease.
Please see Dr. Keys's note for further details. Hemostasis was obtained with multiple repair sutures and protamine was given to reverse the ACT. There was some improvement hemostasis and so the wound was packed and the muscle layer was closed
tightly with an 0 Vicryl running suture. The next layer was then closed in a horizontal mattress interrupted fashion with multiple Ethibond sutures attempting to create a occlusive wound closure over the 10 mm graft. Transesophageal
echocardiography revealed better decompression of the left ventricle and some pulsatility.
All instrument, sponge, and needle counts were confirmed to be correct x 2 at the end of the operation. The patient was transferred to the cardiac intensive care unit in critical and guarded condition.
I, Dr. Nimesh Sims, was present, scrubbed for, and performed all critical elements of this procedure.
Nimesh Sims MD, MS
Cardiothoracic Surgeon
[facility]
This operative dictation was created using the [employer] dictation system. Please excuse any grammatical, typographical, or 'sound alike' errors
[2023-05-02 19:21] LABS: Glucose - Point of Care 223 mg/dl (70-99)
[2023-05-02] MEDS: SODIUM BICARBONATE 50 MEQ IV ×2 (19:27→22:04)
[2023-05-02] MEDS: CALCIUM CHLORIDE 10% SYRINGE 1000 MG IV (19:30)
[2023-05-02 19:35] LABS: Hematocrit 33.5 % (39.0-52.0); Mean Corpuscular Hgb 32.8 pg (27.0-31.0); Mean Corpuscular Volume 96.3 fL (80.0-94.0); Platelet Count 123 10^3/uL (130-400); Red Blood Cell Count 3.48 10^6/uL (4.70-6.10); Red Cell Dist. Width 15.3 % (11.5-14.5)
[2023-05-02 19:37] LABS: B.E. 17.7 mmol/L; O2 Saturation % 99.2 % (94-98); PCO2 64 mmHg (35-48); PO2 390 mmHg (83-108); pH 7.45 (7.35-7.45)
[2023-05-02 19:40] LABS: Hemoglobin 11.4 g/dL (13.0-18.0)
[2023-05-02 19:41] LABS: HCO3 44.5 mmol/L (21-28)
[2023-05-02 19:50] LABS: Lactic Acid 3.9 mmol/L (0.7-2.0)
[2023-05-02 19:50] LABS: Lactic Acid 3.8 mmol/L (0.7-2.0)
[2023-05-02 19:51] LABS: Albumin 2.6 g/dl (3.5-5.0); Alkaline Phosphatase 58 U/L (38-126); Blood Urea Nitrogen 38 mg/dl (9-20); Calcium 8.6 mg/dl (8.4-10.2); Carbon Dioxide 19 mmol/L (22-30); Chloride 104 mmol/L (98-107); Estimated Creatinine Clearance 25 ml/min; Glucose 212 mg/dl (70-99); Magnesium 1.5 mg/dl (1.6-2.3); Potassium 4.8 mmol/L (3.5-5.1); Sodium 132 mmol/L (135-145); Total Bilirubin 1.2 mg/dl (0.2-1.3); Total Protein 4.6 g/dl (6.3-8.2); eGFR 24.89
[2023-05-02] MEDS: MAGNESIUM SULFATE 50 IV (20:10)
[2023-05-02 20:15] LABS: ALT (SGPT) 908 U/L (0-50)
[2023-05-02 20:32] LABS: INR 1.51; PT 18.5 Sec (11.4-14.6)
[2023-05-02 20:33] LABS: APTT 50.2 Sec (23.4-35.0); Fibrinogen 306 MG/DL (199-459)
[2023-05-02 20:42] LABS: D-Dimer 5.05 ug/mlFEU (0.00-0.50)
[2023-05-02 20:49] LABS: AST (SGOT) 2679 U/L (17-59); LDH 2934 U/L (120-246)
--- NOTE | 2023-05-02 21:00 | PTCARENOTE ---
LATE ENTRY - Received patient from labor arbitrator hearing office ~1915. Patient admtted into room 2264. Patient sedated and intubated, ET tube #8, 24 at the lip, Vent settings: Volume A/C, FiO2 100%, TV 550, PEEP 3. Impella placed in Right upper anterior chest wall at
47, IABP via left groin. Cordis/swan via right groin. Bilateral femoral pulses verified via doppler. Patient cold, Temp 95.0. Extremities cold to touch, distal pulses absent, CVPA aware. Levo, Milrinone, Precedex, Integrilin infusing upon
arrival. Integrilini off per Dr. Keys. SR/ST with frequent PVC's on monitor, HR in the 100-120's, SBP's 90-120's, Lungs clear, SPO2 100% on Vent. Abd soft, hypo active BS. Christian draining Clear yellow urine. Full assessment completed as
documented.
2 units PRBC's given in labor arbitrator hearing office, 2 units cryo and 2 units FFP given upon arrival to CVICU
[2023-05-02 21:04] LABS: Glucose - Point of Care 172 mg/dl (70-99)
[2023-05-02] MEDS: NOVOLIN R IV (21:05)
[2023-05-02 21:22] LABS: B.E. -3.4 mmol/L; HCO3 22.1 mmol/L (21-28); Ionized Calcium 1.37 mMOL/L (1.15-1.33); O2 Saturation % 98.5 % (94-98); PCO2 41 mmHg (35-48); PO2 311 mmHg (83-108); Potassium 4.4 mMOL/L (3.5-5.1); pH 7.34 (7.35-7.45)
[2023-05-02 21:28] LABS: Mixed Venous O2 Saturation 60.4 %
[2023-05-02 22:09] LABS: Glucose - Point of Care 165 mg/dl (70-99)
[2023-05-02] MEDS: NOVOLIN R 3 UNITS IV (22:15)
[2023-05-02] MEDS: NOVOLIN R INSULIN INFUSION 100 IV (22:23)
[2023-05-02 22:51] LABS: Amphetamines Negative (Negative); Barbiturates Negative (Negative); Benzodiazepines Positive (Negative); Buprenorphine Negative (Negative); Cocaine Positive (Negative); Marijuana Negative (Negative); Methadone Negative (Negative); Methamphetamines Negative (Negative); Opiates Negative (Negative); Phencyclidine Negative (Negative); Tricyclic Antidepressants Negative (Negative)
[2023-05-02 23:00] LABS: Glucose - Point of Care 167 mg/dl (70-99)
[2023-05-02 23:07] LABS: Fentanyl, Urine Positive (Negative)
[2023-05-02] MEDS: CORDARONE 150 MG IV ×2 (23:14→23:21)
[2023-05-02] MEDS: MAGNESIUM SULFATE 102 GRAMS IV (23:24)
[2023-05-02] MEDS: VERSED 0.5 MG IV (23:30)
[2023-05-02] MEDS: CALCIUM CHLORIDE 10% SYRINGE 500 MG IV (23:32)
--- NOTE | 2023-05-02 23:39 | W.PN.UPDATE ---
Update Note
Progress Note Update
Cardiology Update Note:
-At ~2315 pt's family were in the room visiting when pt's noted to be in ventricular tachycardia (rate 230's)
-IV Amiodarone 150 mg was administered while code cart was en route to pt's bedside
-Pt was subsequently shocked x 1 with 200J
-Pt's rhythm returned to NSR 80-90's briefly before transitioning to polymorphic VT in the form of Torsades
-Pt's was then shocked with 150J in addition to administration of 1g of magnesium sulfate
-Pt's rhythm returned to NSR 80-90's, an additional 150 mg of Amiodarone was given via IV push, and an Amiodarone gtt was started per protocol
-Of note, pt has both a IABP and an Impella in place, and is on Milrinone (0.25 mcg/kg/min) and Levophed gtt (8 mcg/min), already intubated
[2023-05-03] VITALS (27 sets, daily range): BP systolic 68–127; BP diastolic 37–86; BMI 25.0
[2023-05-03 00:02] LABS: Glucose - Point of Care 130 mg/dl (70-99)
[2023-05-03] MEDS: PRECEDEX 100 IV ×4 (00:04→19:28)
[2023-05-03] MEDS: CORDARONE 518 MG IV ×2 (00:04→20:43)
[2023-05-03] MEDS: VERSED 0.5 MG IV ×20 (00:05→21:12)
[2023-05-03 00:40] LABS: Mixed Venous O2 Saturation 60.5 %
--- NOTE | 2023-05-03 01:00 | PTCARENOTE ---
LATE ENTRY - 2229 Patient family at bedside, no acute changes in assessment at this time.
2310 ~ Patient HR elevated to 200's, VTach on monitor, CVPA at bedside,
Per CVPA:
2314 150mg Amio IV push given
2315 200j shock - patient into SR/ST with PVC's
2318 150mg Amio IV Push given
2319 Polymorphic VT
2321 150j Shock - SR/ST with PVC's
2324 1g Mag given
2332 500mg Calcium Chloride given
[2023-05-03 01:08] LABS: Glucose - Point of Care 118 mg/dl (70-99)
[2023-05-03 02:01] LABS: Glucose - Point of Care 107 mg/dl (70-99)
[2023-05-03] MEDS: PRIMACOR 20 MG 100 IV ×2 (02:33→15:44)
[2023-05-03 03:05] LABS: Glucose - Point of Care 99 mg/dl (70-99)
[2023-05-03 03:34] LABS: Hematocrit 23.9 % (39.0-52.0); Mean Corpuscular Hgb 32.8 pg (27.0-31.0); Mean Corpuscular Volume 91.2 fL (80.0-94.0); Mean Platelet Volume 12.3 fL (7.4-10.4); Platelet Count 101 10^3/uL (130-400); Red Blood Cell Count 2.62 10^6/uL (4.70-6.10); Red Cell Dist. Width 15.3 % (11.5-14.5); White Blood Cell Count 11.1 10^3/uL (4.8-10.8)
[2023-05-03 03:36] LABS: Mixed Venous O2 Saturation 61.3 %
[2023-05-03 03:39] LABS: Hemoglobin 8.6 g/dL (13.0-18.0)
[2023-05-03 03:43] LABS: APTT 40.4 Sec (23.4-35.0); INR 1.41; PT 17.5 Sec (11.4-14.6)
[2023-05-03 03:45] LABS: Lactic Acid 1.8 mmol/L (0.7-2.0)
[2023-05-03] MEDS: CORDARONE 150 MG IV ×2 (03:54→04:11)
[2023-05-03] MEDS: DILAUDID 1 MG IV (04:02)
[2023-05-03 04:08] LABS: Albumin 2.5 g/dl (3.5-5.0); Alkaline Phosphatase 68 U/L (38-126); Blood Urea Nitrogen 39 mg/dl (9-20); Calcium 9.3 mg/dl (8.4-10.2); Carbon Dioxide 29 mmol/L (22-30); Chloride 104 mmol/L (98-107); Direct Bilirubin 0.8 mg/dl (0.0-0.4); Estimated Creatinine Clearance 24 ml/min; Glucose 99 mg/dl (70-99); Magnesium 2.2 mg/dl (1.6-2.3); Potassium 4.5 mmol/L (3.5-5.1); Sodium 134 mmol/L (135-145); Total Protein 4.5 g/dl (6.3-8.2); eGFR 23.83
[2023-05-03 04:12] LABS: D-Dimer 6.19 ug/mlFEU (0.00-0.50)
[2023-05-03 04:18] LABS: ALT (SGPT) 950 U/L (0-50)
[2023-05-03 04:32] LABS: AST (SGOT) 2621 U/L (17-59); LDH 3110 U/L (120-246)
[2023-05-03 05:07] LABS: Glucose - Point of Care 93 mg/dl (70-99)
--- NOTE | 2023-05-03 05:15 | PTCARENOTE ---
LATE ENTRY - 0335 patient agitated, moving legs and arms
0340 Versed given
0350 patient in VT
0354 150mg Amio IV push given per CVPA
Patient in/out of VT
0355 patient remains agitated, additional dose of versed given
0411 150mg Amio IV push given
2 units PRBC's given as ordered
[2023-05-03 05:50] LABS: GGTP 45 U/L (15-73)
[2023-05-03] MEDS: SUBLIMAZE 70 MCG IV (05:52)
[2023-05-03] MEDS: SUBLIMAZE 100 IV ×2 (05:54→19:53)
[2023-05-03 06:08] LABS: B.E. -1.3 mmol/L; HCO3 22.6 mmol/L (21-28); Ionized Calcium 1.24 mMOL/L (1.15-1.33); O2 Saturation % 99.1 % (94-98); PCO2 34 mmHg (35-48); PO2 147 mmHg (83-108); pH 7.43 (7.35-7.45)
--- NOTE | 2023-05-03 06:20 | W.PN.HOSP.TC ---
Addendum entered and electronically signed by Kevin Guerrero MD 05/03/23 11:49:
Addendum
Acute blood loss anemia
It seems the admission HGB at 14 can be hemoconcentrated. No signs of active bleeding, no rectal bleeding. I agree with CT C/A/P. Add IV PPI for GI prophylaxis.
End
Original Note:
Today's Communication/Plan
-
.
Assessment / Plan
Assessment / Plan
Physical Exam
General: Sedated and intubated
HEENT: Anicteric, Moist mucous membranes and Atraumatic. ET tube noted
Respiratory: Decreased Breath Sounds
Cardiac: S1/S2
GI: Soft and Non Tender
Rectal: No Maroon Stools
Genito-urinary: No costovertebral tender; No hematuria
Musculoskeletal: less Cyanosis noted in peripheral limbs, No Edema
Skin: Dry; No Jaundice
Neuro: Sedated
Psych: No Agitated
67 years male who presented with chest pain, shortness of breath and peripheral cyanosis
# Acute non-ST elevation myocardial infarctions/p angioplasty of proximal LAD
c/w antiplatelet therapy, pressure support, currently on milrinone, Levophed and dobutamine with Impella device placed post angioplasty
Appreciate cardiology help
# Cardiogenic shock due to CMP
c/w pressure support
s/p Albumin gtt PRN
Echo showed LVEF around 10% with severe global hypokinesis with anteroseptal, septal, anterior, and apical�akinesis., trace MR, mild to moderate TR.
Per night team: patient was able to move his extremities and seemed to follow simple commands.
s/p Impella device placement by Dr Sims on 05/02. S/P right axillary artery access by Dr Segura.
Appreciate CT surgery/ vascular help
#Acute heart failure with reduced ejection fraction suspect due to ischemic cardiomyopathy but can not rule out substance induced CMP.
Patient drank alcohol almost daily and urine tested positive for cocaine
# Acute hypoxic respiratory failure
s/p intubation on 05/02
Abg reviewed
Order restraints to protect airway/tubes.
c/w assisted mode
# Ventricular tachycardia with polymorphic VT
Currently SR
Mg at 2.2. K at 4.5
s/p Shock and currently on amiodarone gtt
s/p magnesium infusion
# Acute kidney injury
Creatinine stable at 2.8
Good urine output
Suspect underlying CKD, will try to get records from PCP
Appreciate nephrology input
# Acute blood loss anemia with likely dilutional
s/p 2 units of packed RBCs.
# Hyperkalemia
resolved
# Elevated liver enzymes, likely c/w ischemic hepatitis.
And has history of daily alcohol intake.� No abdominal pain.� No nausea.
Trend liver enzymes
# Primary hypertension.� Held losartan due to renal sufficiency and hypotension
# History of CVA continue with antiplatelet therapy
# History of GERD, continue with PPI
# History of tobacco abuse
# History of daily alcohol intake.�
Started on [facility] protocol
Added IV Thiamine
Patient will be transferred to [facility] for higher level of care , will continue care at while remain in house.
Total time spent to see the patient on the floor, examine the patient, review data and lab results, discuss treatment plan with CT surgery team, nursing staff around 55 minutes
Anticipated Discharge: Within 24 hours
Subjective/Interval History
-
Date of Service: May 03, 2023
Events over nights were reviewed
Sedated now, on amio gtt
Objective Data
-
Labs:
Laboratory Results
05/02/23 05/02/23 05/02/23
19:24 19:29 19:50
WBC 15.0 H
Hgb 11.4 L D
Hct 33.5 L
Plt Count 123 L D
PT Cancelled Cancelled
INR Cancelled Cancelled
APTT Cancelled Cancelled
HCO3 44.5 H*
Sodium 132 L
Potassium 4.8
Chloride 104
Carbon Dioxide 19 L
BUN 38 H
Creatinine 2.7 H
Glucose 212 H
Calcium 8.6
Total Bilirubin 1.2
AST 2679 H*
ALT 908 H*
Alkaline Phosphatase 58
05/02/23 05/02/23 05/03/23
20:10 21:15 03:24
WBC 11.1 H
Hgb 8.6 L D
Hct 23.9 L
Plt Count 101 L
PT 18.5 H 17.5 H
INR 1.51 1.41
APTT 50.2 H 40.4 H
HCO3 22.1
Sodium 134 L
Potassium 4.5
Chloride 104
Carbon Dioxide 29
BUN 39 H
Creatinine 2.8 H
Glucose 99
Calcium 9.3
Total Bilirubin 2.0 H
AST 2621 H*
ALT 950 H*
Alkaline Phosphatase 68
05/03/23
06:00
WBC
Hgb
Hct
Plt Count
PT
INR
APTT
HCO3 22.6
Sodium
Potassium
Chloride
Carbon Dioxide
BUN
Creatinine
Glucose
Calcium
Total Bilirubin
AST
ALT
Alkaline Phosphatase
Vital Signs:
Vital Signs
Temp Pulse Resp BP Pulse Ox
99.1 F 98 14 117/50 100
05/03/23 06:00 05/03/23 06:00 05/03/23 06:00 05/03/23 06:00 05/03/23 06:00
I&O
05/01/23 05/02/23 05/03/23
06:59 06:59 06:59
Intake Total 1357.5 / 1357.5
Output Total 745 / 745
Balance 612.5 / 612.5
--- NOTE | 2023-05-03 06:25 | W.PN.UPDATE ---
Addendum entered and electronically signed by Palmer García PA-C 05/03/23 07:55:
-Gave 2u PRBC overnight. On Levo @ 5 and Milrinone @ 0.25 mcg/kg/min
-Started fentanyl gtt. was waking up despite precedex @ 1 overnight. Appears to go into VT/Torsades when awake
Original Note:
Update Note
Progress Note Update
IMPELLA VENTRICULAR ASSIST DEVICE MANAGEMENT NOTE (CPT 85372)
DATE: 05/03/23
Provider: Nimesh Sims MD, MS
Settings: P5, acceptable max min
Events: multiple low placement events noted, one suction event, episdoes of VTach and Torsades requiring cardioversion (shock/meds)
Assessment & Plan: neurologically intact, nodding yes and no, maintains eye contact, hemodynamics on my morning eval with MAPS in 70s, attempted standby of IABP, unable to tolerate with SBPs dropping to 80s, changed Impella setting to P4, no
pulsatility above support at this time, [place] was not usable for CO/CI, however Mixed Venous has remained acceptable in the low 60s with lactate clearing. Continue as is, TTE to verify Impella placement, Cardiology to facilitate transfer to tertiary
care center ([facility]). Will plan to initiate systemic heparin with goal PTT 40-60s today.
32 mins of care time
--- NOTE | 2023-05-03 06:26 | PTCARENOTE ---
patient awakens spontaneously, is following commands, able to squeeze with hands and point toes/ push feet against resistance.
[2023-05-03 07:16] LABS: Glucose - Point of Care 100 mg/dl (70-99)
--- NOTE | 2023-05-03 07:35 | W.PN.ANS.POP ---
Anesthesia Post Operative
- Anesthesia Post Op Note
Vital Signs Stable-See Nursing Note: Yes
Airway Patent: Yes
Adequate Pain Control: Yes (remains intubated- on precedex and fentanyl )
Anesthesia Complications: No
Unplanned Admission: No
Post Op Hydration Adequate: Yes
- -
Pt remains intubated with balloon pump and impella...on Milrinone, Levophed gtts. Precedex and fentanyl infusions for sedation. VSS at time of post op visit.
[2023-05-03 07:43] LABS: ACT-LR - POC > 397 Seconds (116-155)
--- NOTE | 2023-05-03 08:00 | PTCARENOTE ---
Assumed care of patient. Walking rounds completed with previous RN. Pt assessed while he was lying in bed. Pt occasionally opens his eyes spontaneously and is able to follow commands to shake head yes/no appropriately to all orientation questions,
squeeze hands and wiggle toes. Intubated with 8.0 ETT 24cm at the lip. AC 40% 14 550 5. RT notified to change rate to 12 per CTPA. POX 100%. Lungs clear anteriorly. Small amount of clear oral and ETT secretions. SR with PVC and PACs on tele with
rates in the 90s. BP supported with levophed. Impella at P5. IABP 1:2 with 50% augmentation. Bilateral radial pulses palpable. Bilateral DPPT pulses present via doppler. B/l toes dusky/mottled and cool to the touch. +1 edema to b/l ankles. CI 1.37,
PA pressures 30s/20s, CVP 9. Abdomen soft, round, nontender. Hypoactive BS. Christian catheter intact draining adequate amounts of kevan urine. Right chest incision covered with gauze & tape- large amount of serosanguinous drainage, but does not appear
to be continuing to bleed. slightly hard area around right chest incision. Right chest wall impella site, with impella at 47cm. Left groin with IABP intact. Site soft and dressing CDI. Right femoral cordis and swan floated to 76cm. All lines
flushed, leveled, zeroed. Right and Left AC PIVs intact. See MAR for medication administration. See worklist for complete nursing assessment. Plan of care reviewed.
Gtts:
Insulin per Critical Care Glycemic Protocol
Cordis NSS KVO
Levophed @5mcg/min
Milrinone @ 0.25mcg/kg/min
Fentanyl @50mcg/hr
Precedex @1mcg/kg/hr
Amio @0.5mg/min
[2023-05-03] MEDS: THIAMINE INJECTION 200 MG IV (08:27)
--- NOTE | 2023-05-03 09:03 | W.PN.CARDCBS ---
Addendum entered and electronically signed by Boom Amaral DO 05/03/23 12:10:
I saw and examined the patient.
The Nylon Mender's note was reviewed and I agree with the note.
Comment:
Plan:
Dr Keys spoke with Dr Verduzco at [facility] and pt is for likely transfer after CT scan
Cont IABP and Impella for hemodynamic support.
Impella adjusted by CT surgery for better placement.
Cont vent support
IV pressor support for bp.
IV milrinone for inotropic support.
Family has been updated.
CCT: 45 min
Original Note:
Today's Communication / Plan
-
Called [facility]
Arranging for cath and echo discs
Talked with bedside
Appreciate help of CT surgery team in managing Impella and IABP
Impression / Plan
-
PCP: Annika Morton
Dairy Worker: None prior to arrival, initial consult Dr. JC Gleason
Impression:
Admitted with chest pain and concern for late presentation CA 05/02/23
Cardiogenic shock
s/p IABP 05/02/23
s/p unsuccessful Impella 5.5 via right subclavian/axillary artery cutdown with subsequent dissection requiring endarterectomy and primary repair with replacement of the graft more proximally 05/02/23
s/p Impella CP 05/02/23
CAD
likely a late presentation CA with initial Troponin 18.7 05/02/23
s/p cath with SPICE MILLER of RCA and s/p 3.0 mm Xience to ostial LAD 05/02/23
Acute HFrEF
ICM EF 10% by echo 05/02/23
Abnormal LFTs
MIREILLE, creatinine 2.9
Hyperkalemia, potassium 6.1
Hypertension
Stroke ~2008
GERD
Daily ETOH use
Urine toxicology from 05/02/23 late was positive for cocaine, fentanyl and BZDs likely cross reaction from meds given thus far
Tobacco abuse
Acute blood loss anemia
s/p 2 units PRBCs 05/02/23, 2 units PRBCs 05/03/23
2 units FFP and 2 cryoprecip 05/02/23
Echo 05/02/23: EF 10%, severe global hypokinesis, with anteroseptal, septal, anterior, and apical akinesis, trace MR, mild to mod TR with PAP 36 mmHg
Plan:
-Patient came to [facility] with chest pain 05/02/23, initial Troponin 18 and there was concern for late presentation CA. Patient taken to semiconductor lab technician and found to have SPICE MILLER of RCA and ostial LAD lesion that was stented as above. EF was 10% echo and CI was 0.6
at cath. Patient had IABP placed. There was an unsuccessful attempt to place an Impella 5.5 via right subclavian/axillary artery cutdown with subsequent dissection requiring endarterectomy and primary repair with replacement of the graft more
proximally. Vascular surgery involved as well and along with CT surgery an Impella CP was placed. On 05/02/23 at 2315 patient with VT and was given amiodarone bolus and then became unstable and shocked, then more amio and another shock. Morning of
05/03/23 the IABP was put into standby and patient unable to tolerate with SBP dropping to the 80s.
-Call to [facility] transfer center 05/03/23 at approx 0900 to help facilitate transfer. Dr. Keys and Dr. Cherry had talked to [facility] on 05/02/23 and patient was unstable for transfer at that time. Patient appears more stable on Impella CP, IABP, on the
vent with gtts 05/03/23.
-Tuesday, 05/03/23 at 0913: IABP at 1:2, Impella CP at P5, CI 1.44, SVR 2100, milrinone at 0.25, Levo at 5, amiodarone gtt at 0.5
-Updated patient's bedside
-Recheck Troponin. This was likely a late presentation CA and can be coded as a NSTEMI based on ECGs and Troponins
-Hgb was 14.3 on 05/02/23 and he has received a total of 4 units PRBCs, 2 cryoprecip and 2 FFP since admission. Hgb is 8.6 on 05/03/23
-Cre 2.9 on admission 05/02/23 and 2.8 on 05/03/23. Nephrology consulted to see patient.
-Potassium 4.5 and magnesium 2.2 on 05/03/23
-AST/ALT 3291/1283 on 05/02/23 and 2621/950 on 05/03/23
-Patient is s/p 3.0 mm Xience ZAIN to ostial LAD 05/02/23. He is NPO and has not received aspirin 05/03/23. Patient was given Brilinta 180 mg PO x1 on 05/02/23.
-Called echo to create disc fro transfer and they are on their way for another Impella echo eval as well. Called semiconductor lab technician for disc as well.
-Transfer paper work completed await mode of transfer selected by [place]
HPI: Patient is a 67-year-old male with past medical history significant for hypertension, stroke, GERD, daily alcohol use, tobacco abuse who presents to emergency department 05/02/2023 with chest pain, shortness of breath and reflux symptoms.
Patient reports he has been having dyspnea on exertion for several months associated with reflux symptoms. Yesterday he woke up with chest burning that persisted most of the day associated with SOB. Chest pain continued prompting him to seek
medical attention today. In emergency department patient patient was found to have dusky lips and cyanotic fingertips. He also has weakened peripheral pulses. Noted to be hypotensive with BP 88/63 to 103/73. EKG showed sinus tachycardia at 106
bpm with IVCD, possible RVH and T wave abnormality in inferior leads. Chest x-ray showed mild right lower lung atelectasis versus scarring and mild cardiomegaly. Abnormal labs include BUN 39, creatinine 2.9, potassium 6.1, ALT 1283. Troponin 18.7,
proBNP greater than 27,000.
At time of this presentation patient continues to complain of 3 out of 10 chest burning/tightness. He currently denies shortness of breath, dizziness or lightheadedness.
Progress Note - Dairy Worker
Subjective
Date of Service: May 03, 2023
Eyes open, bedside
Objective
Labs:
05/03/23 03:24
05/03/23 03:24
Labs
Hgb 8.6 g/dL (13.0-18.0) L D 05/03/23 03:24
Hct 23.9 % (39.0-52.0) L 05/03/23 03:24
Plt Count 101 10^3/uL (130-400) L 05/03/23 03:24
PT 17.5 Sec (11.4-14.6) H 05/03/23 03:24
INR 1.41 05/03/23 03:24
APTT 40.4 Sec (23.4-35.0) H 05/03/23 03:24
Sodium 134 mmol/L (135-145) L 05/03/23 03:24
Potassium 4.5 mmol/L (3.5-5.1) 05/03/23 03:24
BUN 39 mg/dl (9-20) H 05/03/23 03:24
Creatinine 2.8 mg/dL (0.7-1.3) H 05/03/23 03:24
Glucose 99 mg/dl (70-99) 05/03/23 03:24
Troponins
05/02/23
09:06
Troponin I 18.700 H*
Vital Signs and I&O:
Vital Signs
Temp Pulse Resp BP Pulse Ox
99.7 F 94 12 120/55 100
05/03/23 09:00 05/03/23 09:00 05/03/23 09:00 05/03/23 09:00 05/03/23 09:00
Vital Signs
Temp Pulse Resp BP Pulse Ox
99.7 F 94 12 120/55 100
05/03/23 09:00 05/03/23 09:00 05/03/23 09:00 05/03/23 09:00 05/03/23 09:00
Intake & Output
05/01/23 05/02/23 05/03/23 05/04/23
06:59 06:59 06:59 06:59
Intake Total 1357.5 / 1425.4 135.8 / 135.8
Output Total 745 / 780 65 / 65
Balance 612.5 / 645.4 70.8 / 70.8
Physical Exam
Physical Exam
GEN: Awake and alert
HEENT: EOMI, MMM
LUNGS: Intubated and on the ventilator. Coarse BS throughout. No wheeze.
CV: SR on tele. IABP at 1:2 and Impella CP at P5 in place
ABD: soft, BS+, NT, ND
EXT: Pale. No edema B/L
NEURO: Gross non-focal
SKIN: No rash
[2023-05-03 09:09] LABS: Glucose - Point of Care 87 mg/dl (70-99)
--- NOTE | 2023-05-03 09:13 | CON.MD ---
Consultation - Medical
-
IMP:
Acute non-ST elevation myocardial infarctions/p angioplasty of proximal LAD
Cardiogenic shock due to CMP
Echo showed LVEF around 10% with severe global hypokinesis with anteroseptal, septal, anterior, and apical�akinesis., trace MR, mild to moderate TR.
s/p Impella device placement by Dr Sims on 05/02. S/P right axillary artery access by Dr Segura.
Acute heart failure with reduced ejection fraction suspect due to ischemic cardiomyopathy but can not rule out substance induced CMP-chr ETOH, +cocaine.
Daily ETOH and positive for cocaine
Acute hypoxic respiratory failure
Ventricular tachycardia with polymorphic VT-s/p Shock and on amiodarone gtt
Acute kidney injury
Acute anemia
Hyperkalemia-resolved
Elevated liver enzymes-� ischemic hepatitis.
h/o Primary hypertension
History of CVA
History of GERD
History of tobacco abuse
Hyponatremia
thrombocytopenia
Plan:
A/w CP and found NSTEMI, cardiogenic shock, s/p LHC/RHC, LAD stent, s/p IMpella and IABP on 05/02, PCWP 42, LVEDP 40
overnight with VTs s/p shock, mg and Amiodarone
MIREILLE-no baseline cr available, no urine studies to comment though highly suspect cardiorenal
check UA, U lytes-keep the cash
seem to be non oliguric. K has normalized and cr stable at 2.8
renal US when can for baseline
cont pressure support for MAP>65
med adjustment per cards and CT surg
prn diuretics
plan to transfer to [place] when bed available
d/w nursing
CC time spent 40min
[id number]
[2023-05-03 09:49] LABS: Glycohemoglobin (HgbA1c) 5.6 % (4.0-5.6)
--- NOTE | 2023-05-03 10:00 | PTCARENOTE ---
CT PA at bedside to place left radial nurys. Appropriate waveform obtained. Line flushed, leveled, and zeroed. Pt tolerated.
--- NOTE | 2023-05-03 10:05 | W.PN.UPDATE ---
Update Note
Progress Note Update
VENTRICULAR ASSIST DEVICE ADJUSTMENT (CPT 10935).
Under TTE guidance, I inserted the impella slight deeper and it was too shallow.
[2023-05-03] MEDS: XYLOCAINE 2% MDV 20 ML INJ (10:17)
--- NOTE | 2023-05-03 10:22 | W.PN.UPDATE ---
Update Note
Progress Note Update
Procedure Note
Pre operative diagnosis: Cardiogenic Shock
Post operative diagnosis: Cardiogenic Shock
Procedure: Left radial arterial line placement
Supervising Physician: Dr. Nimesh Sims MD.
Extension Specialist: Cary Page PA-C
Anesthesia: 1 mg versed, Precedex gtt 1, Fentanyl gtt 50
Specimens: none
Indication for procedure: Patient is a 67-year-old male who presented to [facility] with late presentation AL and was found to be in cardiogenic shock. Patient was taken to the cardiac catheterization lab where he underwent PCI of left
main and ostial LAD followed by intra-aortic balloon pump and Impella device placement. Patient was stabilized and transferred to the cardiovascular intensive care unit. Request was made for left radial arterial line due to need for hemodynamic
monitoring.
Description of procedure: Patient was prepped and draped in sterile fashion. Proper timeout was performed. Patient's left radial artery was palpated. 5 cc of local lidocaine was advanced under subcuticular skin. Radial A-line needle was advanced
with good flash of arterial blood return. Needle guidewire was advanced forward without resistance. Catheter was advanced over needle needle guidewire. Needle needle guidewire were then removed, and catheter was hooked up to proper tubing and
transduced. Catheter was sutured into place using a 2-0 silk suture. Site was then cleaned. Proper Tegaderm dressing was applied. All sharps were disposed in the proper container.
Blood loss: 5 mL
Complications: None
--- NOTE | 2023-05-03 11:02 | W.PN.UPDATE ---
Update Note
Progress Note Update
Talked with team at [facility] and updated patient's and daughter. Family says patient used cocaine in the past and patient's thinks he might have used cocaine as recently as several weeks ago, but says he is not a habitual user. Patient drinks
2 shots and one glass of whiskey on the rocks daily. Hgb trending down and concern for blood loss vs hemolysis. Appreciate help of CT surgery team in communicating with [facility] team. Current plan is for a noncontrast CT chest/abd/pelvis to look for any
active bleeding. Repeat labs planned.
[2023-05-03 11:11] LABS: Glucose - Point of Care 124 mg/dl (70-99)
[2023-05-03 11:16] LABS: % Basophils 0.3 % (0-2); % Immature Granulocytes 0.5 % (0-0.5); % Lymphocytes 7.6 % (20.5-51.1); % Monocytes 8.4 % (1.7-9.3); % Neutrophils 83.2 % (42.2-75.2); Absolute Immature Granulocytes 0.1 10^3/uL (0-0.05); Absolute Lymphocytes 0.9 10^3/uL (1.2-3.4); Absolute Neutrophils 9.5 10^3/uL (1.4-6.5); Hematocrit 30.2 % (39.0-52.0); Mean Corp Hgb Conc. 36.1 g/dL (33.0-37.0); Mean Corpuscular Hgb 31.1 pg (27.0-31.0); Nucleated Red Blood Cells % 0.3 % (-); Red Blood Cell Count 3.51 10^6/uL (4.70-6.10); Red Cell Dist. Width 17.3 % (11.5-14.5); White Blood Cell Count 11.4 10^3/uL (4.8-10.8)
[2023-05-03 11:18] LABS: B.E. -0.2 mmol/L; HCO3 23.9 mmol/L (21-28); O2 Saturation % 98.5 % (94-98); PCO2 36 mmHg (35-48); PO2 130 mmHg (83-108); pH 7.43 (7.35-7.45)
[2023-05-03 11:19] LABS: Hemoglobin 10.9 g/dL (13.0-18.0)
--- NOTE | 2023-05-03 11:19 | CON.ONC ---
Impression
Impression
* Acute blood loss anemia
Plan
Plan
Acute blood loss anemia
- Hemoglobin 14.3 at baseline on admission, on 05-02-22.
- Down to 8.6 on 05-03-23 post-procedure.
- Received 2u PRBC overnight, and hemoglobin has recovered to 10.9 on 05-03-23.
- Based on the sudden drop after undergoing vascular and cardiac procedures, likely from acute blood loss.
- Ordered additional labs.
- CT CAP has been ordered to look for any active bleeding - pending.
- Follow CBC and transfuse as required.
Patient History
History of Present Illness
Vicente Puente, 67 year-old male, presented to the emergency with persistent chest pain and dyspnea on 05-02-23. He was diagnosed with myocardial infarction with cardiogenic shock. CT surgery was consulted for urgent Impella 5.5 placement. Due to
the size of the [place] vessel and possibly angulation, were unable to pass the 5.5 and downgraded to a CP Impella. Hemoglobin was down to 8.6 on 05-03-23 post-procedure, from 14.3 on admission. Received 2u PRBC overnight, and hemoglobin has
recovered to 10.9 on 05-03-23.
Past-Medical/Surgical History
PMH: tobacco use, alcohol use, hypertension, history of stroke, hyperlipidemia, gastroesophageal reflux disease
PSH: not significant
FH: CAD
SH: active smoker; EtOH; urine toxicology was positive for fentanyl, cocaine and benzodiazepines on 05-02-23
Patient Medication
Medication Instructions Recorded Confirmed Last Taken Type
aspirin 81 mg chewable tablet 81 mg PO DAILY Blood Clot 05/02/23 05/02/23 04/30/23 History
Prevention/Tx
dexlansoprazole 60 mg 60 mg PO DAILY Gastrointestinal 05/02/23 05/02/23 Unknown History
capsule,biphase delayed release Issue
(Dexilant)
losartan 50 mg tablet 50 mg PO DAILY Blood Pressure 05/02/23 05/02/23 04/30/23 History
Active Medications
Generic Name Dose Route Start Last Admin
Trade Name Freq PRN Reason Stop Dose Admin
Aspirin 81 mg 05/03/23 08:00 05/03/23 08:27
Aspirin 81 Mg Chewable Tablet PO 05/31/23 07:59 Not Given
DAILY CHAD
Dextrose 12.5 grams 05/02/23 20:01
Dextrose 50% (0.5 Grams/Ml) 50 Ml Syringe IV 05/30/23 20:00
[id number] PRN
BLOOD GLUCOSE < 70
Sodium Bicarbonate 25 meq/ 1,025 mls @ 0 mls/hr 05/02/23 13:00
Dextrose INF CATH 05/30/23 12:59
PRN PRN
device maintenance
As Directed
Albumin Human 12.5 grams in 250 mls @ 0 mls/hr 05/02/23 14:00
Albumin 5% IV 05/30/23 13:59
[id number] PRN
hypovolemia
As Directed
Insulin Human Regular 100 units in 100 mls @ 0 mls/hr 05/02/23 20:15 05/02/23 22:23
Novolin R Insulin Infusion IV 100 mls
PER PROTOCOL CHAD Administration
Protocol
Per Protocol
Epinephrine HCl 4 mg in 250 mls @ 0 mls/hr 05/02/23 20:15
Adrenalin IV
PER PROTOCOL CHAD
Protocol
Per Protocol
Dobutamine HCl/Dextrose 500 mg in 250 mls @ 0 mls/hr 05/02/23 20:15
Dobutrex 500 Mg IV
PER PROTOCOL CHAD
Protocol
Per Protocol
Milrinone Lactate/Dextrose 20 mg in 100 mls @ 0 mls/hr 05/02/23 23:00 05/03/23 02:33
Primacor 20 Mg IV 100 mls
PER PROTOCOL CHAD Administration
Protocol
Per Protocol
Dexmedetomidine HCl 400 mcg in 100 mls @ 0 mls/hr 05/02/23 23:00 05/03/23 00:04
Precedex IV 100 mls
PER PROTOCOL CHAD Administration
Protocol
Per Protocol
Amiodarone HCl 900 mg/ 518 mls @ 0 mls/hr 05/02/23 23:45 05/03/23 00:04
Dextrose/Water IV 518 mls
PER PROTOCOL CHAD Administration
Protocol
Per Protocol
Norepinephrine Bitartrate 4 mg in 250 mls @ 0 mls/hr 05/03/23 05:30
Levophed IV
PER PROTOCOL CHAD
Protocol
Per Protocol
Fentanyl Citrate 1,000 mcg in 100 mls @ 0 mls/hr 05/03/23 05:30 05/03/23 05:54
Sublimaze IV 100 mls
PER PROTOCOL CHAD Administration
Protocol
Per Protocol
Insulin Aspart 0 units 05/03/23 07:30 05/03/23 07:40
Insulin Aspart (100 Units/Ml) 3 Ml Flexpen SC 05/31/23 07:29 Not Given
AC CHAD
Protocol
Midazolam HCl 0.5 mg 05/03/23 00:30 05/03/23 10:15
Midazolam (Preservative Free) 1 Mg/Ml 2 Ml Vial IV 05/31/23 00:29 0.5 mg
[id number] PRN Administration
agitation
Sodium Chloride 0 flush 05/02/23 20:00
Sodium Chloride 0.9% (Flush) Syringe IV 05/30/23 19:59
PER PROTOCOL CHAD
Thiamine HCl 200 mg 05/03/23 08:00 05/03/23 08:27
Thiamine (100 Mg/Ml) 2 Ml Vial IV 05/31/23 07:59 200 mg
BID CHAD Administration
Review of Systems
-
Unable to obtain full review of systems at this time due to: Patient Intubation
Physical Exam
-
General: Intubated
HEENT: Moist Mucous Membranes
Cardiology: Normal Sinus Rhythm, S1 and S2
Pulmonary: Other (intubated; coarse breath sounds)
GI: Soft, Normal Bowel Sounds and No Organomegaly
Musculoskeletal: No Clubbing, No Cyanosis and No Edema
Extremities: Pulses Present
Skin: IV Access / Catheter Site and No Ecchymosis
Hematologic / Lymphatic: No Lymphadenopathy
Labs
Lab Results
WBC 11.1 10^3/uL (4.8-10.8) H 05/03/23 03:24
RBC 2.62 10^6/uL (4.70-6.10) L 05/03/23 03:24
Hgb 8.6 g/dL (13.0-18.0) L D 05/03/23 03:24
Hct 23.9 % (39.0-52.0) L 05/03/23 03:24
MCV 91.2 fL (80.0-94.0) 05/03/23 03:24
MCH 32.8 pg (27.0-31.0) H 05/03/23 03:24
MCHC 36.0 g/dL (33.0-37.0) 05/03/23 03:24
RDW 15.3 % (11.5-14.5) H 05/03/23 03:24
Plt Count 101 10^3/uL (130-400) L 05/03/23 03:24
MPV 12.3 fL (7.4-10.4) H 05/03/23 03:24
Abs Immat Gran (auto) Cancelled 05/02/23 13:03
Absolute Neuts (auto) Cancelled 05/02/23 13:03
Absolute Lymphs (auto) Cancelled 05/02/23 13:03
Absolute Monos (auto) Cancelled 05/02/23 13:03
Absolute Eos (auto) Cancelled 05/02/23 13:03
Absolute Basos (auto) Cancelled 05/02/23 13:03
Immature Gran % Cancelled 05/02/23 13:03
Neutrophils % Cancelled 05/02/23 13:03
Lymphocytes % Cancelled 05/02/23 13:03
Monocytes % Cancelled 05/02/23 13:03
Eosinophils % Cancelled 05/02/23 13:03
Basophils % Cancelled 05/02/23 13:03
Creatinine 2.8 mg/dL (0.7-1.3) H 05/03/23 03:24
Vital Signs
Vital Signs
Temp Pulse Resp BP Pulse Ox
99.9 F 96 12 109/55 99
05/03/23 11:00 05/03/23 11:10 05/03/23 11:00 05/03/23 11:00 05/03/23 11:10
[2023-05-03 11:33] LABS: Albumin 2.5 g/dl (3.5-5.0); Alkaline Phosphatase 73 U/L (38-126); Blood Urea Nitrogen 39 mg/dl (9-20); Calcium 8.3 mg/dl (8.4-10.2); Carbon Dioxide 25 mmol/L (22-30); Chloride 107 mmol/L (98-107); Estimated Creatinine Clearance 25 ml/min; Glucose 107 mg/dl (70-99); INR 1.36; Potassium 4.3 mmol/L (3.5-5.1); Sodium 131 mmol/L (135-145); Total Bilirubin 2.4 mg/dl (0.2-1.3); Total Protein 4.5 g/dl (6.3-8.2); eGFR 24.89
[2023-05-03 11:34] LABS: APTT 43.6 Sec (23.4-35.0)
[2023-05-03 11:36] LABS: ALT (SGPT) 744 U/L (0-50)
--- NOTE | 2023-05-03 11:40 | PTCARENOTE ---
Pt transported to CT with RN, RT, Perfusion, and CT PA. Vitals stable through transport (BP via left radial nurys stable). Pt sedated with PRN versed as needed. Overall, pt tolerated transport to CT and back to 2264 @1230
[2023-05-03 11:45] LABS: Mean Platelet Volume 12.2 fL (7.4-10.4); Platelet Count 78 10^3/uL (130-400)
[2023-05-03 11:48] LABS: LDH 1972 U/L (120-246)
[2023-05-03 11:50] LABS: Urine Albumin Trace (Neg - Trace); Urine Bilirubin Negative (Negative); Urine Character Clear (Clear); Urine Color Yellow; Urine Glucose Negative (Negative); Urine Ketone Negative (Negative); Urine Leukocyte 1+ (Negative); Urine Nitrite Negative (Negative); Urine Occult Blood 4+ (Negative); Urine Specific Gravity 1.015 (<1.030); Urine Urobilinogen Negative (Neg - 1+)
[2023-05-03 12:00] LABS: AST (SGOT) 1698 U/L (17-59)
[2023-05-03 12:05] LABS: Urine Hyaline Cast 0-2 /LPF (0-2); Urine Squamous Cell 0-2 /LPF (Few)
[2023-05-03 12:06] LABS: Urine Bacteria Moderate (Negative)
--- NOTE | 2023-05-03 12:21 | W.PN.UPDATE ---
Update Note
Progress Note Update
I discussed Mr. Puente's case with Drs. Verduzco and Lizzy at [facility], transfer has been accepted.
Nimesh Sims MD, MS
Cardiac Surgeon
[2023-05-03 13:05] LABS: Glucose - Point of Care 118 mg/dl (70-99)
[2023-05-03 13:11] LABS: Reticulocyte Count 2.4 % (0.4-2.8)
--- NOTE | 2023-05-03 13:30 | PTCARENOTE ---
Pt reassessed. Pt continues to be able to follow commands. Remains intubated, POX 99-100%. NSR with rates in the 90s. BP supported with levophed, IABP, and Impella support at P5. Christian continues to drain adequate UO. All lines remain intact. B/l
toes remain dusky/mottled and cool to the touch. Pulses obtainable via doppler. No other acute changes from previous assessment.
[2023-05-03 13:34] LABS: Iron 164 ug/dl (49-181)
[2023-05-03 13:43] LABS: Percent Saturation 69 % (20-50); Total Iron Binding Capacity 237 ug/dl (261-462)
[2023-05-03 14:09] LABS: Urine Sodium 79 mmol/L (30-90)
[2023-05-03 14:42] LABS: Folate 4.9 ng/ml (2.76-20); Vitamin B12 > 1000 pg/ml (239-931)
--- NOTE | 2023-05-03 14:48 | W.PN.UPDATE ---
Update Note
Progress Note Update
CT reports reviewed and there is no obvious source of bleeding. Anemia could be more hemolysis than blood loss. Heparin gtt being started. Patient has not yet received antiplatelet agents following ostial LAD PCI yesterday. Stable on vent and
hemodynamically stable on Levo at 5, milrinone at 0.25. Cre was 2.7 on recheck. Called back to [facility] to relay updated information and see if they would be willing to accept patient and how patient should be transferred. Attending was not able to pick
up phone and transfer center left a message asking for a call back. I await a call back. Updated patient's and daughter again.
[2023-05-03 15:10] LABS: Glucose - Point of Care 93 mg/dl (70-99)
--- NOTE | 2023-05-03 15:43 | PTCARENOTE ---
Not currently starting Heparin gtt since PTT is 43.6, as PTT goal is 40-60. CT [employer] notified and in agreement.
[2023-05-03] MEDS: LEVOPHED 250 IV (15:44)
[2023-05-03] MEDS: NOVOLIN R INSULIN INFUSION 100 IV (15:45)
--- NOTE | 2023-05-03 16:00 | PTCARENOTE ---
Pt reassessed. Remains intubated and sedated, but still awakens easily and follows commands. Shakes head appropriately and wiggles toes/squeezes fingers. Denies pain and nausea. NSR with rates in the 90s. BP supported with Levophed, impella P5, IABP
1:2. POX 98% AC 40% 12 550 5. UO adequate. Right hand slightly dusky/mottled, good palpable radial pulse. Left radial pulse weak and confirmed via doppler. B/l toes dusky/mottled, warming blanket applied to feet. B/l DPPT pulses present via doppler.
CI 1.6. No other acute changes from previous assessment. Continuing to await bed placement at [facility] [place].
--- NOTE | 2023-05-03 16:56 | CM ---
spoke to in room, pt is prev indep, lives withhis keven 2 story home with 1 step to enter. he is intubated and sedated. neema is for transfer to [facility], awaiting bed. cm role explained. chart copied.
--- NOTE | 2023-05-03 17:00 | PTCARENOTE ---
OG attempted with RN x2. Dr. Alexander at bedside and placed NGT via Left nare at 60cm. Placement by ascultation. xray called to verify placement.
[2023-05-03 17:22] LABS: Glucose - Point of Care 100 mg/dl (70-99)
--- NOTE | 2023-05-03 18:08 | CON.INTV ---
Consultation
Consultation Request
Date/Time Consultation Requested: 05/02/2023 - 1910
Date/Time Consultation Performed: 05/03/2023 - 1221
Requesting Provider: Dr. Guerrero
Performing Provider: Dr. Winston
Reason for Consultation: Cardiogenic shock
Medical History
-
Chief Complaint: Chest pain
History of Present Illness:
67-year-old M with PMHx of HTN, tobacco use disorder, Hx of CVA, cocaine use and GERD who p/w chest pain. He has been feeling unwell for about 2 weeks braulio worsening SOB. Pt had cyanotic toes and vascular surgery was consulted. Labs showed
elevated troponin to 18.7 with elevated LFTs and pro-BNP>27,000. EKG concerning for anterlateral IL and urgent LHC was arranged. LHC showed 100% LAD lesion that required a ZAIN. He was found to be in cardiogenic shock with CO/CI severely reduced
at 1.4/0.77, and mean PAP of 49mmHg. Decision made for CT surgery to insert Impella via right axillary cut down graft. An IABP was also placed. Pt tolerated this procedure without an acute immediate complication & was TRX to CVICU for further
care. Post procedure TTE showed severe hypokinesis of his LV sparing of the inferior base, with LVEF 10-15%. There was normal RV size and function. That evening on 05/02 pt went into VT. Amiodarone started and pt was cardioverted x2 (he did
initially convert to NSR but then degraded into tdp before being shocked the 2nd time). He is on milrinone, levophed, and sedated on fentanyl + precedex. Program Instructor services consulted for additional management/recommendations.
When I saw the pt he was intubated on AC/VC 550/12/40%/5 with f: 12, VTe 380cc and PIP 19. Left radial A-line showed bP of 113/59, his IABP showed a BP of 119/62 and he was on 1:2 augmentation. PAP 41/24 via R-IJ [place]. He was on levophed at
5mcg/min, milrinone at 0.25mcg/kg/min, and insulin gtt at 0.4 units/hr. His Impella was P5. On AM of 05/03 there was a drop in Hb (11.4 --> 8.6), and a Neck CT showed a right infraclavicular hematoma measuring 5cm. The impella was otherwisea
functioning well. Pt accepted to [facility] and is awaiting TRX.
PMHx: Tobacco use, alcohol use, hypertension, history of stroke, hyperlipidemia, gastroesophageal reflux disease
PSHx: non-contributory
Past Medical History
Past Medical History: Other (Above as per HPI)
Past Surgical History: Other (Above as per HPI)
Social History
Tobacco: Smoker
Alcohol: Daily
Drug: Cocaine
Personal:
Living: With Family
Employment: Employed
Family History
Family History: CAD
Allergies / Home Medications
Allergies
Allergy/AdvReac Type Severity Reaction Status Date / Time
No Allergy Information Allergy Verified 05/02/23 08:53
Available
Home Medications
Medication Instructions Recorded Confirmed Last Taken Type
aspirin 81 mg chewable tablet 81 mg PO DAILY Blood Clot 05/02/23 05/02/23 04/30/23 History
Prevention/Tx
dexlansoprazole 60 mg 60 mg PO DAILY Gastrointestinal 05/02/23 05/02/23 Unknown History
capsule,biphase delayed release Issue
(Dexilant)
losartan 50 mg tablet 50 mg PO DAILY Blood Pressure 05/02/23 05/02/23 04/30/23 History
Review of Systems
-
Unable to Obtain full review of systems at this time due to: Patient Intubation
Vitals / Labs / Diagnostic Testing
Vital Signs
Temp Pulse Resp BP Pulse Ox
100.1 F 96 12 123/59 98
05/03/23 17:00 05/03/23 17:20 05/03/23 17:05 05/03/23 17:00 05/03/23 17:20
Laboratory Results
05/02/23 05/02/23 05/02/23
19:24 19:29 19:50
PT Cancelled Cancelled
INR Cancelled Cancelled
APTT Cancelled Cancelled
pH 7.45
pCO2 64 H
pO2 390 H
HCO3 44.5 H*
O2 Delivery Level
05/02/23 05/02/23 05/03/23
20:10 21:15 03:24
PT 18.5 H 17.5 H
INR 1.51 1.41
APTT 50.2 H 40.4 H
pH 7.34 L
pCO2 41
pO2 311 H
HCO3 22.1
O2 Delivery Level
05/03/23 05/03/23 05/03/23
06:00 11:07 11:09
PT 17.0 H
INR 1.36
APTT 43.6 H
pH 7.43 7.43
pCO2 34 L 36
pO2 147 H 130 H
HCO3 22.6 23.9
O2 Delivery Level
Diagnostic Testing:
Physical Exam
-
HEENT: Normocephalic and Anicteric
Cardiovascular: S1/S2 and Peripheral Edema (n)
Respiratory: Wheeze (n), Non-Labored Respirations and Other (mechanical breath sounds b/l)
GI: Soft, Non Distended and Non Tender
Neurology: Other (sedated but easily arousable and following commands)
Skin: Warm and Dry
General: Respiratory Distress (n) and Comfortable
Assessment
-
Assessment: 67-year-old M with PMHx of HTN, tobacco use disorder, Hx of CVA, cocaine use and GERD who p/w chest pain. He has been feeling unwell for about 2 weeks braulio worsening SOB. Pt had cyanotic toes and vascular surgery was consulted. Labs
showed elevated troponin to 18.7 with elevated LFTs and pro-BNP>27,000. EKG concerning for anterlateral IL and urgent LHC was arranged. LHC showed 100% LAD lesion that required a ZAIN. He was found to be in cardiogenic shock with CO/CI severely
reduced at 1.4/0.77, and mean PAP of 49mmHg. Decision made for CT surgery to insert Impella via right axillary cut down graft. An IABP was also placed. Pt tolerated this procedure without an acute immediate complication & was TRX to CVICU for
further care. Post procedure TTE showed severe hypokinesis of his LV sparing of the inferior base, with LVEF 10-15%. There was normal RV size and function. That evening on 05/02 pt went into VT. Amiodarone started and pt was cardioverted x2 (he
did initially convert to NSR but then degraded into tdp before being shocked the 2nd time). He is on milrinone, levophed, and sedated on fentanyl + precedex. Program Instructor services consulted for additional management/recommendations.
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
Impression:
#Cardiogenic shock s/p mechanical circulatory support with Impella and IABP now awaiting evaluation for LVAD
#Acute NSTEMI s/p ZAIN to LAD
#Impella insertion c/b right infraclavicular 5cm hematoma
#VT/tdp s/p cardioversion and amiodarone
#Acute respiratory failure with hypoxemia on mechanical ventilation
#Cocaine use as evidenced by urine toxicology
#Tobacco use disorder
Plan:
Ventilator settings reviewed
FiO2 will be weaned
Minute ventilation will be adjusted
Arterial blood gases will be monitored
Hold off on SBT as pt is being prepared for TRX to [facility] for eval for LVAD
Pulmonary artery catheter parameters will be followed
Pressors/antihypertensive/inotropes/diuretics will be provided as needed
Monitor hemoglobin
Monitor platelet count and coags
Transfuse blood product if needed with goal Hb>8, plt>50k
Monitor blood sugar with goal BG 140-180
Insulin drip per protocol
Aspiration precautions
VAP prevention protocol
DVT prophylaxis
Early nutrition
Early mobilization
Patient is already accepted to [facility] for further care to be worked up for LVAD. He will be TRX tonight.
Critical care statement (Patient was seen and evaluated on 05/03/2023): A total of 46 minutes of critical care time was provided for this patient today. This includes management of ventilator, spontaneous breathing trial, arterial blood gases,
pressors, of unstable vital signs, evaluation of the patient at bedside, reviewing the patient's pertinent medical records including radiographs, microbiology, laboratory evaluations, and discussion with primary team and critical care nursing.
--- NOTE | 2023-05-03 18:15 | PTCARENOTE ---
NG placement was not confirmed with xray, ICU atttending at bedside to attempt again multiple times with no success.
[2023-05-03 18:26] LABS: Hematocrit 30.5 % (39.0-52.0); Hemoglobin 10.9 g/dL (13.0-18.0); Mean Corp Hgb Conc. 35.7 g/dL (33.0-37.0); Mean Corpuscular Hgb 31.4 pg (27.0-31.0); Mean Corpuscular Volume 87.9 fL (80.0-94.0); Mean Platelet Volume 12.4 fL (7.4-10.4); Platelet Count 79 10^3/uL (130-400); Red Blood Cell Count 3.47 10^6/uL (4.70-6.10); Red Cell Dist. Width 17.3 % (11.5-14.5); White Blood Cell Count 12.5 10^3/uL (4.8-10.8)
[2023-05-03 18:27] LABS: B.E. 0.5 mmol/L; HCO3 24.6 mmol/L (21-28); PCO2 37 mmHg (35-48); PO2 95 mmHg (83-108); pH 7.43 (7.35-7.45)
--- NOTE | 2023-05-03 18:30 | PTCARENOTE ---
Report given to JALEN Braun at [place]. Family notified of bed and report given.
[2023-05-03 18:37] LABS: INR 1.46
[2023-05-03 18:38] LABS: APTT 44.9 Sec (23.4-35.0)
[2023-05-03 18:45] LABS: Blood Urea Nitrogen 40 mg/dl (9-20); Carbon Dioxide 25 mmol/L (22-30); Chloride 106 mmol/L (98-107); Estimated Creatinine Clearance 26 ml/min; Glucose 93 mg/dl (70-99); Magnesium 1.9 mg/dl (1.6-2.3); Sodium 131 mmol/L (135-145); eGFR 26.05
--- NOTE | 2023-05-03 18:46 | W.PN.UPDATE ---
Update Note
Progress Note Update
Multiple attempts made to insert OGT/NGT without success due to coiling of the enteral tube. Tube was retracted multiple times and then advanced, but to no avail. The NGT then started to become bloody. Additional attempts to reinsert were aborted
at this time. Pt also about to go to [facility] for additional management. Bedside RN made aware. Only meds that were going to be given were antiplatelet meds - options exist besides PO access including: giving rectal ASA, and using IV cangrelor in
place of plavix or brilinta.
[2023-05-03 18:55] LABS: LDH 1575 U/L (120-246)
[2023-05-03 19:27] LABS: Glucose - Point of Care 96 mg/dl (70-99)
--- NOTE | 2023-05-03 20:00 | PTCARENOTE ---
Assumed care of pt from previous shift RN. Assessment unchanged. NSR on monitor. 98% on ventilator. IABP and Impella maintained. Flight crew at bed side for transport.
--- NOTE | 2023-05-04 06:35 | W.DCSUMMARY ---
Discharge Summary
Discharge Data
Date of Admission: 05/02/23
Date of Discharge: 05/03/23
-
Pending Results: No
Hospital Course
67 years old male with past medical history significant for hypertension, stroke, gastroesophageal reflux disease, daily alcohol use, tobacco abuse, substance abuse who presented to the emergency room with chest pain, shortness of breath and reflux
symptoms. Patient reported that he had been dealing with dyspnea on exertion for several months associated with reflux symptoms. His chest pain got worse and his brought him to the hospital. In the emergency room, patient was found to have
dusky lips and cyanotic fingertips. He had weak peripheral pulses and was noted to be hypotensive with systolic blood pressure around 88. Electrocardiogram showed tachycardia with T wave abnormalities in the inferior leads. Chest radiography
showed mild right lower lung atelectasis versus scarring and mild cardiomegaly. Creatinine was 2.9. Potassium was 6.1. Elevated liver enzymes with a troponin around 18.7. Patient was diagnosed with cardiogenic shock and None- ST elevation
myocardial infarction. Stat echocardiogram showed left ventricular ejection fraction around 5 to 10% with severe global hypokinesis with anteroseptal, septal, anterior and apical akinesia. It also showed trace mitral regurgitation, mild to
moderate tricuspid regurgitation. Patient was evaluated by cardiology service. He underwent cardiac catheterization with successful angioplasty of ostial left anterior descending artery. Patient received Brilinta. Patient needed arterial access
with inotropic support. Vascular and cardiothoracic surgery doctors were consulted. Patient had Impella placement with right axillary artery/subclavian�endarterectomy. Patient remained in the intensive care unit and he was intubated for hypoxic
respiratory failure. He received pressure support medications to treat hypotension and give inotropic support. Hemoglobin on admission was 14.3 which was thought to be hemoconcentrated with possible underlying anemia of chronic disease/blood loss
anemia. Patient received 2 units of packed red blood cells. His hemoglobin stabilized around 10. Scan of the chest/abdomen/pelvis showed degenerative disc disease and lumbar area, postoperative changes related to cardiac intervention, small
bilateral pleural effusion, emphysematous changes in both lungs, small volume perihepatic ascites with possible sign of acute tubular necrosis in the kidneys. Patient did not report rectal pain and family denied history of rectal bleeding at home.
Repeat creatinine came down to 2.6. Sodium at 131. Liver enzymes started to come down. Patient remained intubated and sedated but was able to follow simple commands and move all extremities upon holding sedation. Patient had episode of
ventricular tachycardia and required shock and amiodarone drip. Cardiothoracic surgery recommended to transfer to [facility] for higher level of care. Arrangements were made between cardiology/cardiothoracic surgery
doctors on both sides to transfer the patient to [facility]. Patient was transferred in a stable condition.
Discharge Plan
-
Patient Disposition: Acute Care Hospital
Discharge Date and Time
Discharge Date/Time: 05/03/23 22:00
[2023-05-04 19:01] LABS: Haptoglobin <10 mg/dL (30-200)
== END 2023-05-03 22:00 | disposition short-term general hospital (02) | DRG 1 ==
LOC: CVICU 11:16
PROVIDERS: Internal Medicine Cardiovascular Disease; Nurse Practitioner; Physician Assistant Medical; Student in an Organized Health Care Education/Training Program; Thoracic Surgery (Cardiothoracic Vascular Surgery); ADMITTING PHYSICIAN Internal Medicine; CONSULT PHYSICIAN Internal Medicine; CONSULT PHYSICIAN Internal Medicine Cardiovascular Disease; CONSULT PHYSICIAN Internal Medicine Critical Care Medicine; CONSULT PHYSICIAN Internal Medicine Hematology & Oncology; CONSULT PHYSICIAN Surgery Vascular Surgery; EMERGENCY PHYSICIAN Emergency Medicine; FAMILY PHYSICIAN Internal Medicine; OTHER PHYSICIAN Clinical Nurse Specialist Acute Care
PROC: 02HA3RZ Insertion of Short-term External Heart Assist System into Heart, Percutaneous Approach (ICD-10-PCS; 2023-05-02)
PROC: B2111ZZ Fluoroscopy of Multiple Coronary Arteries using Low Osmolar Contrast (ICD-10-PCS; 2023-05-02)
PROC: 4A023N8 Measurement of Cardiac Sampling and Pressure, Bilateral, Percutaneous Approach (ICD-10-PCS; 2023-05-02)
PROC: 30233N1 Transfusion of Nonautologous Red Blood Cells into Peripheral Vein, Percutaneous Approach (ICD-10-PCS; 2023-05-02)
PROC: B240ZZ3 Ultrasonography of Single Coronary Artery, Intravascular (ICD-10-PCS; 2023-05-02)
PROC: 5A02210 Assistance with Cardiac Output using Balloon Pump, Continuous (ICD-10-PCS; 2023-05-02)
PROC: 027034Z Dilation of Coronary Artery, One Artery with Drug-eluting Intraluminal Device, Percutaneous Approach (ICD-10-PCS; 2023-05-02)
PROC: 5A0221D Assistance with Cardiac Output using Impeller Pump, Continuous (ICD-10-PCS; 2023-05-02)
PROC: 30233K1 Transfusion of Nonautologous Frozen Plasma into Peripheral Vein, Percutaneous Approach (ICD-10-PCS; 2023-05-02)
PROC: 30233M1 Transfusion of Nonautologous Plasma Cryoprecipitate into Peripheral Vein, Percutaneous Approach (ICD-10-PCS; 2023-05-02)
PROC: 0BH17EZ Insertion of Endotracheal Airway into Trachea, Via Natural or Artificial Opening (ICD-10-PCS; 2023-05-02)
PROC: X2H New Technology, Cardiovascular System, Insertion (ICD-10-PCS; 2023-05-02)
PROC: 5A1945Z Respiratory Ventilation, 24-96 Consecutive Hours (ICD-10-PCS; 2023-05-02)
PROC: 4A133B1 Monitoring of Arterial Pressure, Peripheral, Percutaneous Approach (ICD-10-PCS; 2023-05-03)
PROC: 4A133J1 Monitoring of Arterial Pulse, Peripheral, Percutaneous Approach (ICD-10-PCS; 2023-05-03)
DX: I21.4 Non-ST elevation (NSTEMI) myocardial infarction (principal); I50.21 Acute systolic (congestive) heart failure; R57.0 Cardiogenic shock; K72.00 Acute and subacute hepatic failure without coma; J96.01 Acute respiratory failure with hypoxia; I77.76 Dissection of artery of upper extremity; N17.0 Acute kidney failure with tubular necrosis; E87.1 Hypo-osmolality and hyponatremia; D62 Acute posthemorrhagic anemia; I47.21 Torsades de pointes; R18.8 Other ascites; I11.0 Hypertensive heart disease with heart failure; K21.9 Gastro-esophageal reflux disease without esophagitis; R23.0 Cyanosis; I25.5 Ischemic cardiomyopathy; E87.5 Hyperkalemia; F17.210 Nicotine dependence, cigarettes, uncomplicated; D69.6 Thrombocytopenia, unspecified; F14.10 Cocaine abuse, uncomplicated; F10.90 Alcohol use, unspecified, uncomplicated; E78.00 Pure hypercholesterolemia, unspecified; I73.9 Peripheral vascular disease, unspecified; E86.1 Hypovolemia; Z79.82 Long term (current) use of aspirin; Z79.899 Other long term (current) drug therapy; Z86.73 Personal history of transient ischemic attack (TIA), and cerebral infarction without residual deficits; Z82.49 Family history of ischemic heart disease and other diseases of the circulatory system
CPT/HCPCS: 93308; 33967; 33990; 35266; 35301; 70450; 70490; 71045; 71250; 74018; 74176; 80048; 80053; 80306; 80307; 81003; 81015; 82248; 82330; 82570; 82607; 82728; 82746; 82805; 82810; 82962; 82977; 83010; 83036; 83540; 83550; 83605; 83615; 83735; 83880; 84132; 84300; 84484; 85025; 85027; 85045; 85379; 85384; 85610; 85730; 86850; 86900; 86901; 86920; 92978; 93005; 93321; 93325; 93460; 94002; 94003; 96374; 96375; 99291; C1725; C1753; C1769; C1874; C1894; C9600; J1327; J2260; P9012; P9016; P9045; P9059; Q9967

== ENCOUNTER 2023-10-05 13:42 | Outpatient (RCR) | payer OTHER, SELFPAY | END 2023-10-05 23:59 | disposition home or self-care (01) | LOC: CRHB 13:42 | PROVIDERS: ATTENDING PHYSICIAN Internal Medicine Cardiovascular Disease; FAMILY PHYSICIAN Internal Medicine | DX: I50.22 Chronic systolic (congestive) heart failure (principal); I25.5 Ischemic cardiomyopathy | CPT/HCPCS: G0422; G0423 ==

== ENCOUNTER 2023-11-09 13:17 | Outpatient (RCR) | payer OTHER, SELFPAY | END 2023-11-09 23:59 | disposition home or self-care (01) | LOC: CRHB 13:17 | PROVIDERS: ATTENDING PHYSICIAN Internal Medicine Cardiovascular Disease; FAMILY PHYSICIAN Internal Medicine | DX: I50.22 Chronic systolic (congestive) heart failure (principal); I42.9 Cardiomyopathy, unspecified; I25.2 Old myocardial infarction; Z95.5 Presence of coronary angioplasty implant and graft | CPT/HCPCS: G0422; G0423 ==

== ENCOUNTER 2023-11-30 13:34 | Outpatient (RCR) | payer OTHER, SELFPAY | END 2023-11-30 23:59 | disposition home or self-care (01) | LOC: CRHB 13:34 | PROVIDERS: ATTENDING PHYSICIAN Internal Medicine Cardiovascular Disease; FAMILY PHYSICIAN Internal Medicine | DX: I50.22 Chronic systolic (congestive) heart failure (principal); I25.5 Ischemic cardiomyopathy; I25.2 Old myocardial infarction; Z95.5 Presence of coronary angioplasty implant and graft | CPT/HCPCS: G0422; G0423 ==

== ENCOUNTER 2024-01-09 13:33 | Outpatient (RCR) | payer OTHER, SELFPAY | END 2024-01-09 23:59 | disposition home or self-care (01) | LOC: CRHB 13:33 | PROVIDERS: ATTENDING PHYSICIAN Internal Medicine Cardiovascular Disease; FAMILY PHYSICIAN Internal Medicine | DX: I50.22 Chronic systolic (congestive) heart failure (principal); I25.5 Ischemic cardiomyopathy | CPT/HCPCS: G0422; G0423 ==

== ENCOUNTER 2024-01-20 13:25 | Outpatient (RCR) | payer OTHER, SELFPAY | END 2024-01-27 16:21 | disposition home or self-care (01) | LOC: CRHB 13:25 | PROVIDERS: ATTENDING PHYSICIAN Internal Medicine Cardiovascular Disease | DX: I50.22 Chronic systolic (congestive) heart failure (principal); I25.2 Old myocardial infarction; Z95.5 Presence of coronary angioplasty implant and graft; I25.10 Atherosclerotic heart disease of native coronary artery without angina pectoris; I25.5 Ischemic cardiomyopathy | CPT/HCPCS: G0422; G0423 ==

== ENCOUNTER 2024-07-31 13:14 | Emergency (ER) | payer OTHER, SELFPAY ==
[2024-07-31 13:27] VITALS: BP 104/0
--- NOTE | 2024-07-31 13:31 | EDRN ---
BP can only be obtained via doppler
[2024-07-31 13:34] VITALS: BMI 20.6
--- NOTE | 2024-07-31 13:43 | ED.GENMED ---
History of Present Illness
General
Chief Complaint: Fall
Source: patient, records and spouse
Exam Limitations: none
Time Seen by Provider: 07/31/24 13:31
Nursing documentation reviewed up to this point in time: agreed with
History of Present Illness
History of Present Illness:
COIN LVAD COORDINATOR PHONE: [phone]
69-year-old male with past medical history of hypertension, stroke, GERD, CAD, CHF with LVAD (follows through [place]) who presents to the emergency department for evaluation of weakness and frequent falls and today bilateral ankle pains. Patient
reports for the past few weeks he has been having frequent falls and generalized weakness�he describes that when he stands up he will walk a few steps 'and then my whole body is like jelly' which results in a fall. He denies syncope/loss of
consciousness. He says that he had 1 such episode today and unfortunately suffered inversion of both of his ankles and has been having bilateral ankle pain since. He does not believe he hit his head today. He denies any headache, neck pain, back
pain, chest pain, abdominal pain. Denies feeling short of breath. He is on Coumadin.
Review of Systems
Review of Systems
All Other Systems: ROS reviewed and negative except as documented in HPI and ROS
Constitutional: Reports fatigue; Denies fever
Respiratory: Denies trouble breathing
Cardiac: Denies chest pain or syncope
ABD/GI: Denies abdominal pain, nausea or vomiting
: Denies flank pain
Musculoskeletal: Reports joint pain; Denies neck pain or back pain
Neurological: Reports weakness (Generalized); Denies headache or numbness
Phy Exam
Physical Exam
Physical Exam:
General: Awake, alert, oriented x3; no acute distress
Head: Normocephalic, atraumatic
Eyes: Conjunctiva normal, pupils equal round and reactive to light bilaterally
Throat: Airway intact, handling secretions
Neck: Trachea midline, no JVD
Lungs: Clear to auscultation bilaterally, no wheezing, rales, rhonchi
Heart: LVAD in place; continuous mechanical sounds auscultated over precordium
Abd: Soft, non distended, nontender
Neuro: No gross deficits
Extremities: Patient has some slight swelling and ecchymosis over the lateral malleolus bilaterally and tenderness in this area; he has no tenderness of the medial malleolus bilaterally, no tenderness of the calcaneus bilaterally, no tenderness to
the midfoot bilaterally or along the fifth metatarsal bilaterally, no tenderness of the lower leg or knee bilaterally
Scores
Heart Failure Risk
Heart Failure Risk Score: Not Applicable
Heart Score for Chest Pain Patients
STEMI patient?: Not applicable
Withdrawal Assessment of Alcohol
Withdrawal Assessment Completed?: Not applicable
Course
Orders/Labs/Results
Orders:
Orders
07/31/24 13:40
CR Ankle - Left Min 3 Views Urgent
Comment:
Reason For Exam: lateral ankle pain and swelling s/p fall
CR Ankle - Right Min 3 Views * Urgent
Comment:
Reason For Exam: lateral ankle pain and swelling s/p fall
07/31/24 13:42
Electrocardiogram (*1) Urgent
Reason for Study: Fatigue / Weakness
CT Head W/o Iv Contrast Urgent
Comment:
Reason For Exam: fall on coumadin
EKG- Treatment ONCE
Interrogate Pacemaker- Treatment ONCE
07/31/24 14:11
Complete Blood Count/With Diff Urgent
Comprehensive Metabolic Panel Urgent
PTT Urgent
Prothrombin Time Urgent
07/31/24 16:01
Case Management Consult ONCE
Case Management Consult: Discharge Planning
Pt Eval And Treat Urgent
Activity Level: With Assistance
07/31/24 16:11
OT Consult [Ot Eval And Treat] Urgent
Abnormal Lab Results
07/31/24
14:11
RBC 4.17 L 10^6/uL
(4.70-6.10)
MCV 97.4 H fL
(80.0-94.0)
MCH 32.6 H pg
(27.0-31.0)
MPV 11.2 H fL
(7.4-10.4)
Absolute Lymphs (auto) 0.8 L 10^3/uL
(1.2-3.4)
Absolute Monos (auto) 0.7 H 10^3/uL
(0.1-0.6)
Lymphocytes % 10.6 L %
(20.5-51.1)
Monocytes % 9.4 H %
(1.7-9.3)
PT 23.9 H Sec
(11.4-14.6)
APTT 50.3 H Sec
(23.4-35.0)
Potassium 5.3 H mmol/L
(3.5-5.1)
BUN 27 H mg/dl
(9-20)
Creatinine 1.5 H mg/dL
(0.7-1.3)
07/31/24 14:11
07/31/24 14:11
Vital Signs
Initial and Last Documented VS:
Initial Vital Signs
Pulse Resp Pulse Ox
88 9 83
07/31/24 13:21 07/31/24 13:21 07/31/24 13:21
Last Documented Vital Signs
Temp Pulse Resp BP Pulse Ox
36.7 C 70 18 94/0 99
07/31/24 13:27 07/31/24 14:48 07/31/24 14:48 07/31/24 14:48 07/31/24 14:48
MDM/Problems Addressed
Differential Diagnosis Includes:
Ankle pain: Sprain, fracture
Weakness/falls: Anemia, dehydration, electrolyte derangement, dysrhythmia, LVAD issue
MDM/Problems Addressed:
69-year-old male with history as documented notable for CHF and LVAD presents for evaluation of falls and weakness; today he injured his ankles. Vitals and exam as above�normal MAP noted. LVAD parameters normal. Call placed to LVAD team�their
primary concern is fall/trauma; they have been following closely in the office regarding his weakness. Will plan to check basic labs including a CBC and a CMP, coags. Check EKG and interrogate device. Check CT head. Check x-rays of the ankles.
Reassess after the above.
Labs reviewed: CBC and CMP no clinically significant abnormalities�renal function actually improved from prior baseline. CT head negative for any acute pathology. Unfortunately patient has bilateral distal fibular fractures. Discussed with
orthopedist�will place in CAM boot and patient can be partial weightbearing with a walker bilaterally; nonoperative injuries. This is an unfortunate injury pattern will be difficult for him to ambulate at least upfront. I had a long discussion
with the patient and his and I think that he should go to a short-term rehab with these injuries. They are agreeable to this plan. I did discuss with the LVAD team and they agree with this plan�if unable to place directly from ED, however,
would like transfer down to [place].
Unfortunately unable to directly place in rehab�discussed with LVAD team and typically difficult to find rehabs willing to accept an LVAD patient and so they would like patient transferred to [place] for monitoring pending placement. Discussed with
transfer team at [place] and patient accepted, will monitor pending transport.
Chronic conditions affecting care:
CHF, LVAD
*Pulse Oximetry
Patient hypoxic: no
*Critical Care Note
Total Time (30-74mins, 75-104mins- exclusive of procedures): Not Applicable
Data Reviewed
Source: patient, records and family
Patient Management
Discussion with other providers: Other (Discussed with LVAD team at [place]; discussed with window caser)
Escalation/DeEscalation of care consider admission/obs:
Inpatient rehab
ED Attending Note
-
Portions of this chart may have been created with voice recognition software.� Occasional wrong word or��sound alike� substitutions may have occurred due to the inherent limitations of voice recognition software.
Discharge Plan
Departure
Patient Disposition: Acute Care Hospital
Date of Disposition: 07/31/24
Time of Disposition: 17:42
Discharge Problem:
Closed right fibular fracture, Closed left fibular fracture
Prescriptions:
No Action
losartan 50 mg tablet
50 mg PO DAILY
aspirin 81 mg Tablet,Chewable
81 mg PO DAILY
dexlansoprazole [Dexilant] 60 mg capsule,biphase delayed releas
60 mg PO DAILY
Referrals:
Annika Morton MD [Family Provider] -
Hospital Transfer
Other hospital: [facility]
I certify that the patient requires transfer: Yes
Discussed case with accepting physician: Dr. Ponce; Dr. Ruiz
Reason for transfer: specialties available and continuity of care PCP
Interventions
Interventions:
*Risk Screen - Suicide Last Done: 07/31/24 13:33
*General Assessment Last Done: 07/31/24 13:33
*Neglect/Abuse Screening Last Done: 07/31/24 13:33
*ED- Fall Risk Assessment Last Done: 07/31/24 13:34
*ED COVID-19 Vaccine History Last Done: 07/31/24 13:34
ED-Musculoskeletal Assessment Last Done: 07/31/24 13:35
ED- Neurological Assessment Last Done: 07/31/24 13:35
Discharge Date and Time
Print Language: ANGOLAN
[2024-07-31 14:22] LABS: % Basophils 0.7 % (0-2); % Eosinophils 4.3 % (0-6); % Immature Granulocytes 0.4 % (0-0.5); % Lymphocytes 10.6 % (20.5-51.1); % Monocytes 9.4 % (1.7-9.3); % Neutrophils 74.6 % (42.2-75.2); Absolute Basophils 0.1 10^3/uL (0-0.2); Absolute Eosinophils 0.3 10^3/uL (0-0.7); Absolute Lymphocytes 0.8 10^3/uL (1.2-3.4); Absolute Monocytes 0.7 10^3/uL (0.1-0.6); Absolute Neutrophils 5.3 10^3/uL (1.4-6.5); Hematocrit 40.6 % (39.0-52.0); Hemoglobin 13.6 g/dL (13.0-18.0); Mean Corp Hgb Conc. 33.5 g/dL (33.0-37.0); Mean Corpuscular Hgb 32.6 pg (27.0-31.0); Mean Corpuscular Volume 97.4 fL (80.0-94.0); Mean Platelet Volume 11.2 fL (7.4-10.4); Nucleated Red Blood Cells % 0 % (-); Platelet Count 174 10^3/uL (130-400); Red Blood Cell Count 4.17 10^6/uL (4.70-6.10); Red Cell Dist. Width 13.8 % (11.5-14.5); White Blood Cell Count 7.2 10^3/uL (4.8-10.8)
[2024-07-31 14:30] LABS: INR 2.12; PT 23.9 Sec (11.4-14.6)
[2024-07-31 14:31] LABS: APTT 50.3 Sec (23.4-35.0)
[2024-07-31 14:36] LABS: ALT (SGPT) 35 U/L (0-50); AST (SGOT) 28 U/L (17-59); Albumin 4.2 g/dl (3.5-5.0); Alkaline Phosphatase 85 U/L (38-126); Blood Urea Nitrogen 27 mg/dl (9-20); Calcium 9.6 mg/dl (8.4-10.2); Carbon Dioxide 26 mmol/L (22-30); Chloride 105 mmol/L (98-107); Estimated Creatinine Clearance 42 ml/min; Glucose 95 mg/dl (70-99); Potassium 5.3 mmol/L (3.5-5.1); Sodium 140 mmol/L (135-145); Total Bilirubin 0.7 mg/dl (0.2-1.3); Total Protein 6.9 g/dl (6.3-8.2); eGFR 49.77
[2024-07-31 14:48] VITALS: BP 94/0
--- NOTE | 2024-07-31 16:26 | CM ---
Addendum entered by Ana Mosley 07/31/24 17:00:
PT/OT recommending skilled rehab.
needs insurance auth in am.
[facility] NPI# [id number]
Dr Bright NPI# [id number]
Original Note:
Patient seen bedside with spouse.
Patient has a LVAD and familiar to [facility].
Patient s/p fall and has 2 fractured ankles.
Lives in a split level home with 1 step to enter, patient with 1st floor living.
Patient does not drive.
Ambulates without assistive devices, but uses a cane when going out.
Independent with ADLs.
PCP: Praveen
Pharmacy: [facility].
PT/OT evaluating patient now.
Spouse would prefer SNF in the local area
Referrals placed.
Needs insurance auth.
[facility] checking to see if they can do a LVAD, no bed today.
[facility] can accept LVAD tomorrow.
[facility] checking to see if they can accept LVAD and if they have beds.
[2024-07-31] MEDS: TYLENOL 1000 MG PO (19:05)
== END 2024-07-31 21:25 | disposition short-term general hospital (02) ==
LOC: EMR 13:14
PROVIDERS: EMERGENCY PHYSICIAN Emergency Medicine; FAMILY PHYSICIAN Internal Medicine
DX: S82.402A Unspecified fracture of shaft of left fibula, initial encounter for closed fracture (principal); S82.831A Other fracture of upper and lower end of right fibula, initial encounter for closed fracture; W19.XXXA Unspecified fall, initial encounter; Z91.81 History of falling; I11.0 Hypertensive heart disease with heart failure; I50.9 Heart failure, unspecified; I25.10 Atherosclerotic heart disease of native coronary artery without angina pectoris; Z79.01 Long term (current) use of anticoagulants; Z86.73 Personal history of transient ischemic attack (TIA), and cerebral infarction without residual deficits
CPT/HCPCS: 99284; 70450; 73610; 80053; 85025; 85610; 85730; 93005

== ENCOUNTER 2024-11-08 06:48 | Outpatient (RCR) | payer OTHER, SELFPAY | END 2024-11-08 23:59 | disposition home or self-care (01) | LOC: RPT 06:48 | PROVIDERS: ATTENDING PHYSICIAN Physician Assistant; FAMILY PHYSICIAN Internal Medicine | DX: S82.831D Other fracture of upper and lower end of right fibula, subsequent encounter for closed fracture with routine healing (principal); S82.832D Other fracture of upper and lower end of left fibula, subsequent encounter for closed fracture with routine healing; Z73.6 Limitation of activities due to disability | CPT/HCPCS: 97110; 97112; 97162 ==

== ENCOUNTER 2024-11-29 13:16 | Outpatient (RCR) | payer OTHER, SELFPAY | END 2024-11-29 23:59 | disposition home or self-care (01) | LOC: RPT 13:16 | PROVIDERS: ATTENDING PHYSICIAN Physician Assistant; FAMILY PHYSICIAN Internal Medicine | DX: S82.831D Other fracture of upper and lower end of right fibula, subsequent encounter for closed fracture with routine healing (principal); S82.832D Other fracture of upper and lower end of left fibula, subsequent encounter for closed fracture with routine healing; X58.XXXD Exposure to other specified factors, subsequent encounter; Z73.6 Limitation of activities due to disability | CPT/HCPCS: 97110; 97112 ==

== ENCOUNTER 2025-01-03 18:22 | Emergency (ER) | payer OTHER, SELFPAY ==
--- NOTE | 2025-01-03 19:25 | ED.GENMED ---
History of Present Illness
General
Chief Complaint: Fever
Time Seen by Provider: 01/03/25 19:09
History of Present Illness
History of Present Illness:
69-year-old male with history of heart failure status post LVAD placement about 2 years ago presenting to the emergency department for low-grade fever. Patient reports low-grade fever last night of 100.3, with highest at 100.9. He did not have any
Tylenol or Motrin prior to arrival. He talk to his LVAD team and was recommended to come to the hospital. Notes that he has had a slight increase in a chronic cough with increased production of sputum. Denies any pain to his chest or any
difficulty breathing. Does note history of pneumonia in the past. Denies any issues with his LVAD line. Denies abdominal pain or vomiting. Patient gets his care at [facility]. Denies additional he medical complaints
Phy Exam
Physical Exam
Physical Exam:
General: Well-appearing, no clinical signs of dehydration, nontoxic and in no acute distress
HEENT: protecting airway
Neck: appears supple
CV: Normal heart rate, regular rhythm. Audible hum of LVAD
Resp: No accessory muscle use, no increased work of breathing, mild rhonchi to the left lower lung field.
Abd: Soft and non-distended, no tenderness to palpation. Clean appearing LVAD line
Extremities: No deformities, no swelling
Neuro: alert, no focal neurologic deficit
: deferred
Rectal: deferred
Psych: Normal affect
Skin: Intact
Course
Orders/Labs/Results
Orders:
Orders
01/03/25 19:33
COVID-19 Antigen Urgent
Source: Nasal Swab
Complete Blood Count/With Diff Urgent
Comprehensive Metabolic Panel Urgent
Lactic Acid Q4H
Comment: CANCEL 2nd LACTIC ACID IF 1st LACTIC ACID IS LESS THAN 2
PTT Urgent
Prothrombin Time Urgent
Blood Culture Q30M
ANKIT Source: Blood/Venous
Specimen Description:
Influenza A+B Rapid Molecular Urgent
ANKIT Source: Nasal Swab
Specimen Description:
01/03/25 19:42
CR Chest - 2 Views Urgent
Comment:
Reason For Exam: cough, fever, LVAD
01/03/25 20:41
Urinalysis Reflex To Culture Urgent
Date Specimen was Collected: 01/03/25
Time Specimen was Collected: 20:39
Urine Microscopic Reflex Cult Urgent
01/03/25 20:49
Add On- LAB Urgent
Tests Added?: viral respiratory panel
01/03/25 20:59
Respiratory Viral Panel-PCR Urgent
ANKIT Source: SLURRY TANK TENDER
Specimen Description:
Date Specimen was Collected: 01/03/25
Time Specimen was Collected: 21:08
01/03/25 21:48
Blood Culture Q30M
ANKIT Source: Blood/Venous
Specimen Description:
Abnormal Lab Results
01/03/25 01/03/25
19:33 20:41
WBC 14.7 H 10^3/uL
(4.8-10.8)
RBC 4.30 L 10^6/uL
(4.70-6.10)
MCV 97.0 H fL
(80.0-94.0)
MCH 32.3 H pg
(27.0-31.0)
MPV 11.8 H fL
(7.4-10.4)
Abs Immat Gran (auto) 0.1 H 10^3/uL
(0-0.05)
Absolute Neuts (auto) 13.3 H 10^3/uL
(1.4-6.5)
Absolute Lymphs (auto) 0.5 L 10^3/uL
(1.2-3.4)
Immature Gran % 0.6 H %
(0-0.5)
Neutrophils % 90.8 H %
(42.2-75.2)
Lymphocytes % 3.3 L %
(20.5-51.1)
PT 26.4 H Sec
(11.4-14.6)
APTT 66.0 H Sec
(23.4-35.0)
Creatinine 1.5 H mg/dL
(0.7-1.3)
Glucose 110 H mg/dl
(70-99)
Urine Albumin (Reflex) 2+ A
(Neg - Trace)
01/03/25 19:33
01/03/25 19:33
Vital Signs
Initial and Last Documented VS:
Initial Vital Signs
Temp Pulse Resp Pulse Ox
99.6 F 99 16 94
01/03/25 18:37 01/03/25 18:37 01/03/25 18:37 01/03/25 18:37
Last Documented Vital Signs
Temp Pulse Resp Pulse Ox
99.4 F 88 14 95
01/03/25 20:43 01/03/25 22:00 01/03/25 22:00 01/03/25 22:00
MDM/Problems Addressed
MDM/Problems Addressed:
69-year-old male with history of LVAD presenting for low-grade fever since yesterday with cough. Vital signs on arrival are significant for low-grade temperature of 100.3.
On exam patient is resting comfortably, nontoxic. No SIRS criteria with the exception of patient's low-grade temperature. Patient does have some mild rhonchi to the left lower lung field. Possible pneumonia versus viral syndrome, such as COVID or
influenza. Patient's LVAD line is clean without concern for infection. Patient denies any GI complaints, with abdomen soft and nondistended without concern for abdominal pathology. Plan for laboratory analysis and chest x-ray imaging
20:45 -did discuss with patient's LVAD physician at [place]. Results discussed. Patient with mild leukocytosis, however COVID and flu negative. Chest x-ray without acute cardiopulmonary disease. Physician is requesting a viral panel as well as
urinalysis. Otherwise given hemodynamic stability, well appearance, ultimately feel can go home with close interval outpatient follow-up. Will continue to reassess
22:00 -patient remains stable, improvement of temperature without any antipyretics. Urine without sign of infection. Ultimately feel stable for discharge, however with close and will follow-up with LVAD team tomorrow. Will follow cultures.
Strict return precautions were communicated to patient and at bedside who verbalized understanding, and everyone is in agreement with plan
01:10 - Patient positive for rhinovirus. Message was left with patient's , which was preplanned given hour of the evening. Advised that they let the LVAD team know
*Pulse Oximetry
SaO2: 94
Oxygen Mode of Delivery: Room air
Patient hypoxic: no
*Critical Care Note
Total Time (30-74mins, 75-104mins- exclusive of procedures): Not Applicable
ED Attending Note
-
Portions of this chart may have been created with voice recognition software.� Occasional wrong word or��sound alike� substitutions may have occurred due to the inherent limitations of voice recognition software.
Discharge Plan
Departure
Patient Disposition: Home (Routine Discharge)
Date of Disposition: 01/03/25
Time of Disposition: 22:09
Patient with high blood pressure during this ER visit?: No
Condition: Good
Discharge Problem:
Fever, URI, acute
Instructions: Fever, Adult (DC), Viral Syndrome (DC)
Prescriptions:
No Action
trazodone 50 mg Tablet
50 mg PO HS
amiodarone 200 mg Tablet
200 mg PO DAILY
amlodipine [Norvasc] 2.5 mg Tablet
2.5 mg PO DAILY
ascorbic acid (vitamin C) [Vitamin C] 500 mg Tablet
500 mg PO DAILY
warfarin 1 mg Tablet
1 mg PO MOFR@1900
warfarin 1 mg Tablet
2 mg PO SUTUWETHSA@1900
ezetimibe [Zetia] 10 mg Tablet
10 mg PO DAILY
melatonin 5 mg Tablet
5 mg PO HS
Slow-Mag 71.5 mg Tablet,Delayed Release (Dr/Ec)
71.5 mg PO DAILY
guaifenesin [Mucinex] 600 mg Tablet Extended Release 12hr
600 mg PO DAILYPRN PRN (Reason: cough)
Referrals:
Annika Morton MD [Family Provider, Internal Medicine]
Activity Restrictions/Additional Instructions:
You were seen in the emergency department for fever
You were found to have reassuring laboratory analysis, viral swabs, chest x-ray imaging. We suspect you have a viral upper respiratory infection. Please continue to monitor your fevers and follow-up with your LVAD team. You will be called with
any abnormality of your blood cultures.
Please follow-up closely with your primary care physician.
Return to the emergency department for any worsening of your symptoms, or any development of chest pain, difficulty breathing, abdominal pain with persistent vomiting and inability to tolerate food or liquid by mouth (concern for dehydration),
weakness, headache or confusion, fever greater than 100.4, or any additional symptoms that are concerning to you.
Thank you for choosing [facility].
Interventions
Interventions:
*Risk Screen - Suicide Last Done: 01/03/25 18:37
*General Assessment Last Done: 01/03/25 19:38
*Neglect/Abuse Screening Last Done: 01/03/25 18:37
*ED- Fall Risk Assessment Last Done: 01/03/25 19:38
*ED COVID-19 Vaccine History Last Done: 01/03/25 19:38
*Nursing Disposition Last Done: 01/03/25 22:16
ED- Neurological Assessment Last Done: 01/03/25 19:25
ED-Skin Assessment Last Done: 01/03/25 19:25
Discharge Date and Time
Discharge Date/Time: 01/03/25 22:16
Print Language: UPPER SORBIAN
[2025-01-03 19:47] LABS: Hematocrit 41.7 % (39.0-52.0); Hemoglobin 13.9 g/dL (13.0-18.0); Mean Corp Hgb Conc. 33.3 g/dL (33.0-37.0); Mean Corpuscular Volume 97.0 fL (80.0-94.0); Nucleated Red Blood Cells % 0 % (-); Platelet Count 159 10^3/uL (130-400); Red Cell Dist. Width 13.8 % (11.5-14.5)
[2025-01-03 19:59] LABS: INR 2.38; PT 26.4 Sec (11.4-14.6)
[2025-01-03 20:01] LABS: APTT 66.0 Sec (23.4-35.0); COVID-19 Antigen Negative (Negative)
[2025-01-03 20:02] LABS: ALT (SGPT) 16 U/L (0-50); AST (SGOT) 22 U/L (17-59); Albumin 4.9 g/dl (3.5-5.0); Alkaline Phosphatase 73 U/L (38-126); Blood Urea Nitrogen 20 mg/dl (9-20); Calcium 9.6 mg/dl (8.4-10.2); Carbon Dioxide 26 mmol/L (22-30); Chloride 103 mmol/L (98-107); Estimated Creatinine Clearance 43 ml/min; Glucose 110 mg/dl (70-99); Potassium 4.4 mmol/L (3.5-5.1); Sodium 138 mmol/L (135-145); Total Protein 7.7 g/dl (6.3-8.2); eGFR 49.77
[2025-01-03 21:02] LABS: Urine Character Clear (Clear)
[2025-01-03 22:14] LABS: Urine Red Blood Cell 0-2 /HPF (0-2)
== END 2025-01-03 22:16 | disposition home or self-care (01) ==
LOC: EMR 18:22
PROVIDERS: EMERGENCY PHYSICIAN Student in an Organized Health Care Education/Training Program; FAMILY PHYSICIAN Internal Medicine
DX: J06.9 Acute upper respiratory infection, unspecified (principal); I50.9 Heart failure, unspecified; Z95.811 Presence of heart assist device; Z87.01 Personal history of pneumonia (recurrent); Z11.52 Encounter for screening for COVID-19
CPT/HCPCS: 99284; 71046; 80053; 81003; 81015; 83605; 85025; 85610; 85730; 87040; 87502; 87633; 87811

== ENCOUNTER 2025-01-09 19:41 | Emergency (ER) | payer OTHER, SELFPAY ==
[2025-01-09 20:18] VITALS: BMI 23.7
--- NOTE | 2025-01-09 20:44 | ED.GENMED ---
History of Present Illness
General
Chief Complaint: Fever
Source: patient and spouse
Exam Limitations: none
Time Seen by Provider: 01/09/25 19:56
Nursing documentation reviewed up to this point in time: agreed with
History of Present Illness
History of Present Illness:
Note:
CHIEF COMPLAINT(S)
Fever for approximately one week and dark-colored urine.
HISTORY OF PRESENT ILLNESS
The patient is a 69-year-old male who presents with a fever that has persisted for about one week. Additionally, the patient reports experiencing dark-colored urine with decreased output but denies any generalized pain or the need for supplemental
oxygen at home. The patient was previously diagnosed with rhinovirus. These symptoms prompted consultation with an external healthcare team (LVET), who advised coming here for further evaluation and possible intervention. The patient also reports
experiencing a mild cough, but there were no complaints of chest pain or significant respiratory distress.
PHYSICAL EXAM
General: Alert, no acute distress.
Skin: Warm, dry.
Head: Normocephalic, atraumatic.
Neck: Supple, trachea midline.
Eye Ears, Nose, Mouth, and Throat: Oral mucosa moist.
Cardiovascular: Normal peripheral perfusion, No edema. LVAD present
Respiratory: Respirations are non-labored. rhonchi bilateral
Gastrointestinal: Abdomen nondistended
Back: Normal range of motion, Normal alignment.
Musculoskeletal: Normal range of motion, normal strength.
Neurological: Alert and oriented to person, place, time, and situation, No focal neurological deficit observed.
Psychiatric: Cooperative, appropriate mood & affect.
PLAN
The plan includes obtaining a chest X-ray due to the reported cough. Further evaluation of the patients fever and dark urine will also be performed. The results will be communicated to the consulting team to discuss potential next steps.
Additionally, the patient requested water or ice cubes, which will be noted.
DIFFERENTIAL DIAGNOSIS
The Differential Diagnosis includes, in no particular order and is not limited to:
1. Urinary tract infection
2. Dehydration
3. Viral infection (rhinovirus as previously diagnosed)
4. Kidney dysfunction
5. Prostatitis
6. Community-acquired pneumonia
7. Bronchitis
8. Liver dysfunction (possible hepatitis)
9. Medication side effects
10. Congestive heart failure affecting renal perfusion
CARE-UPDATE
01/09/25 - 23:49
IV Cefepime initiated for pneumonia treatment. Patient to be transferred to [facility] as per Dr. Huizar acceptance.
Disposition:
SUMMARY OF ENCOUNTER
The patient, a 69-year-old male, presented to the emergency department with a one-week history of fever and dark-colored urine, alongside a mild cough. The patient had been previously diagnosed with rhinovirus. The initial evaluation included a
review of symptoms and a physical examination. Due to the cough, a chest X-ray was ordered, and after evaluation, the patient was diagnosed with bilateral pneumonia. Management included initiating empirical treatment with cefepime. Based on the
patients pneumonia diagnosis and the need for specialized care, a transfer to the [facility] ([facility]) was arranged.
DISPOSITION
Transfer to the [facility] for further care under Dr. Benitez, Dr. Donn De, and the LVAD team.
EMERGENCY TREATMENTS ADMINISTERED
IV cefepime.
MANAGEMENT OF THE PATIENTS CARE WAS DISCUSSED WITH
Dr. Benitez, Dr. Pop, Dr. De, and LVAD specialist team at [facility].
PLAN
The patient is to be transferred for further evaluation and ongoing management of bilateral pneumonia by a specialized care team at the [facility].
MEDICATION RECONCILIATION
Patient received IV cefepime for pneumonia treatment. Further medication management to be continued at the [facility].
MEDICAL DECISION MAKING
-Complexity of Data Reviewed: Chronic conditions affecting care include previously diagnosed rhinovirus infection, and the differential includes urinary tract infection, dehydration, viral infection (rhinovirus as previously diagnosed), kidney
dysfunction, prostatitis, community-acquired pneumonia, bronchitis, liver dysfunction (possible hepatitis), medication side effects, and congestive heart failure affecting renal perfusion.
-Data:
Category 1
Clinical information obtained and discussed with other providers including Dr. Benitez, Dr. Pop, and Dr. De.
- Risk:
Patient transferred for escalation of care due to the complexity of bilateral pneumonia and potential underlying conditions requiring specialized management.
DIAGNOSIS
Bilateral pneumonia (ICD-10: J18.9). Transfer to ensure specialized care tailored to patient needs.
Phy Exam
Physical Exam
Physical Exam:
.
Course
Orders/Labs/Results
Orders:
Orders
01/09/25 20:43
Cardiac Monitoring- Treatment ONCE
IV Insert/Care/Rem.- Treatment PRN
CR Chest - 2 Views Urgent
Comment:
Reason For Exam: fever, cough
Pulse Ox/cont/shift [RESP] Stat
Quantity: 1
01/09/25 21:29
Complete Blood Count/With Diff Urgent
Comprehensive Metabolic Panel Urgent
Lactic Acid Q4H
Comment: CANCEL 2nd LACTIC ACID IF 1st LACTIC ACID IS LESS THAN 2
Blood Culture Q30M
ANKIT Source: Blood/Venous
Specimen Description:
01/09/25 22:16
Blood Culture Q30M
ANKIT Source: Blood/Venous
Specimen Description:
01/09/25 23:27
Cefepime HCl [Maxipime] 2,000 mg IV NOW STA
Vancomycin [Vancocin] 2,000 mg 0.9% Sodium Chloride 500 ml [Nss] 500 ml IV NOW
01/10/25 00:45
Lactic Acid Q4H
Comment: CANCEL 2nd LACTIC ACID IF 1st LACTIC ACID IS LESS THAN 2
Abnormal Lab Results
01/09/25
21:29
WBC 16.8 H 10^3/uL
(4.8-10.8)
RBC 4.05 L 10^6/uL
(4.70-6.10)
Hgb 12.7 L g/dL
(13.0-18.0)
Hct 37.3 L %
(39.0-52.0)
MCH 31.4 H pg
(27.0-31.0)
MPV 10.7 H fL
(7.4-10.4)
Abs Immat Gran (auto) 0.1 H 10^3/uL
(0-0.05)
Absolute Neuts (auto) 15.2 H 10^3/uL
(1.4-6.5)
Absolute Lymphs (auto) 0.5 L 10^3/uL
(1.2-3.4)
Absolute Monos (auto) 0.9 H 10^3/uL
(0.1-0.6)
Immature Gran % 0.8 H %
(0-0.5)
Neutrophils % 90.9 H %
(42.2-75.2)
Lymphocytes % 2.7 L %
(20.5-51.1)
Potassium 3.4 L mmol/L
(3.5-5.1)
BUN 21 H mg/dl
(9-20)
Creatinine 1.4 H mg/dL
(0.7-1.3)
Glucose 115 H mg/dl
(70-99)
01/09/25 21:29
01/09/25 21:29
Vital Signs
Initial and Last Documented VS:
Initial Vital Signs
Temp Pulse Resp Pulse Ox
100.9 F H 85 18 94
01/09/25 19:45 01/09/25 19:45 01/09/25 19:45 01/09/25 19:45
Last Documented Vital Signs
Temp Pulse Resp Pulse Ox
100.2 F 89 15 91
01/09/25 20:24 01/09/25 22:15 01/09/25 22:15 01/09/25 22:15
*Pulse Oximetry
SaO2: 88
Oxygen Mode of Delivery: Room air
Patient hypoxic: yes
*Dining Service Supervisor Interpretation
Rate: Dining Service Supervisor- N/A
*Critical Care Note
Total Time (30-74mins, 75-104mins- exclusive of procedures): 32
comment:
Critical care statement: A total of 32 minutes of critical care time was provided for this patient. This includes management of unstable vital signs, evaluation of the patient at bedside, reviewing the patient's pertinent medical records, discussion
with consultants, review of old EKGs and review of pertinent medical records. This time with separate from time utilized to perform the aforementioned documented procedures
ED Attending Note
-
Portions of this chart may have been created with voice recognition software.� Occasional wrong word or��sound alike� substitutions may have occurred due to the inherent limitations of voice recognition software.
Discharge Plan
Departure
Patient Disposition: [facility]
Date of Disposition: 01/09/25
Time of Disposition: 23:29
Patient with high blood pressure during this ER visit?: No
Condition: Fair
Discharge Problem:
Bilateral pneumonia, CHF (congestive heart failure), Left ventricular assist device present
Prescriptions:
No Action
trazodone 50 mg Tablet
50 mg PO HS
amiodarone 200 mg Tablet
200 mg PO DAILY
amlodipine [Norvasc] 2.5 mg Tablet
2.5 mg PO DAILY
ascorbic acid (vitamin C) [Vitamin C] 500 mg Tablet
500 mg PO DAILY
warfarin 1 mg Tablet
1 mg PO MOFR@1900
warfarin 1 mg Tablet
2 mg PO SUTUWETHSA@1900
ezetimibe [Zetia] 10 mg Tablet
10 mg PO DAILY
melatonin 5 mg Tablet
5 mg PO HS
Slow-Mag 71.5 mg Tablet,Delayed Release (Dr/Ec)
71.5 mg PO DAILY
guaifenesin [Mucinex] 600 mg Tablet Extended Release 12hr
600 mg PO DAILYPRN PRN (Reason: cough)
Referrals:
Annika Morton MD [Family Provider, Internal Medicine]
Hospital Transfer
Other hospital: [facility]
I certify that the patient requires transfer: Yes
Discussed case with accepting physician: Donn De
Reason for transfer: specialties available
Interventions
Interventions:
*Risk Screen - Suicide Last Done: 01/09/25 19:45
*General Assessment Last Done: 01/09/25 19:45
*ED- Fall Risk Assessment Last Done: 01/09/25 19:45
*ED COVID-19 Vaccine History Last Done: 01/09/25 19:45
*ED Influenza Vaccine History Last Done: 01/09/25 19:45
ED- Neurological Assessment Last Done: 01/09/25 20:20
ED-Skin Assessment Last Done: 01/09/25 20:20
Discharge Date and Time
Print Language: MOSOTHO
[2025-01-09 21:37] LABS: Hematocrit 37.3 % (39.0-52.0); Hemoglobin 12.7 g/dL (13.0-18.0); Mean Corp Hgb Conc. 34.0 g/dL (33.0-37.0); Mean Corpuscular Volume 92.1 fL (80.0-94.0); Nucleated Red Blood Cells % 0 % (-); Platelet Count 248 10^3/uL (130-400); Red Cell Dist. Width 13.2 % (11.5-14.5)
[2025-01-09 22:22] LABS: ALT (SGPT) 26 U/L (0-50); AST (SGOT) 23 U/L (17-59); Albumin 3.7 g/dl (3.5-5.0); Alkaline Phosphatase 86 U/L (38-126); Blood Urea Nitrogen 21 mg/dl (9-20); Calcium 8.8 mg/dl (8.4-10.2); Carbon Dioxide 25 mmol/L (22-30); Chloride 106 mmol/L (98-107); Estimated Creatinine Clearance 46 ml/min; Glucose 115 mg/dl (70-99); Potassium 3.4 mmol/L (3.5-5.1); Sodium 140 mmol/L (135-145); Total Protein 6.6 g/dl (6.3-8.2); eGFR 54.07
[2025-01-09] MEDS: MAXIPIME 2000 MG IV (23:54)
[2025-01-10] MEDS: VANCOCIN 540 MG IV (00:38)
== END 2025-01-10 01:20 | disposition short-term general hospital (02) ==
LOC: EMR 19:41
PROVIDERS: EMERGENCY PHYSICIAN Emergency Medicine; FAMILY PHYSICIAN Internal Medicine
DX: J18.9 Pneumonia, unspecified organism (principal); I50.9 Heart failure, unspecified; Z95.811 Presence of heart assist device
CPT/HCPCS: 99291; 96365; 96375; 71046; 80053; 83605; 85025; 87040